=== PATIENT | male | born 1955 | race Caucasian/White ===

== ENCOUNTER 2021-10-13 09:02 | Outpatient (CLI) | payer MEDICARE, SELFPAY ==
--- NOTE | 2021-10-13 10:11 | XR_ITS ---
WS: [id number] XR chest 2V* [id number] REASON FOR EXAM: TACHYCARDIA, UNSPECIFIED FINDINGS: Mild tortuosity the thoracic aorta with calcification in the aortic arch. No aneurysmal dilatation. Cardiomegaly. Calcified granulomatous disease bilaterally. Interstitial reticular lung opacities in the right lower lung chronicity unknown without previous exa minations for comparison. Mild flattening of the hemidiaphragms. Moderate degenerative spondylosis with mild scoliosis convex right in the mid and lower thoracic spin e. XR/XR chest 2V* [id number] IMPRESSION: Cardiomegaly. Interstitial changes in the right lower lung of unknown chronicity. Most likely chronic, however cannot be excluded early pneumonitis or congestive heart fail ure. Follow-up chest x-ray as clinically warranted.
== END 2021-10-13 09:03 | disposition home or self-care (01) ==
LOC: RAD 09:10
PROVIDERS: PCP Nurse Practitioner; Visit Provider Nurse Practitioner
DX: I10 Essential (primary) hypertension (principal); R00.0 Tachycardia, unspecified; I51.7 Cardiomegaly; J84.10 Pulmonary fibrosis, unspecified; M47.814 Spondylosis without myelopathy or radiculopathy, thoracic region
CPT/HCPCS: 71046

== ENCOUNTER 2021-10-17 10:27 | Inpatient (IN) | payer MEDICARE, SELFPAY ==
[2021-10-17] VITALS (76 sets, daily range): BP systolic 88–137; BP diastolic 60–102; PULSE 90–124; RESP 14–36; TEMP 36.6–37.1; O2SAT 18–123; BMI 36.5
--- NOTE | 2021-10-17 10:41 | XRR_ITS ---
PROCEDURE INFORMATION: Exam: XR Chest Exam date and time: 10/17/2021 11:05 AM Age: 66 years old Clinical indication: Cough and dyspnea; Additional info: Dyspnea/cough TECHNIQUE: Imaging protocol: XR of the chest. Views: 1 view. Total images: 1 COMPARISON: CR XR chest 2V* [id number] 10/13/2021 10:11 AM FINDINGS: Lungs: Nonspecific opacity in the right lung base, favoring atelectasis or pneumonia. Appears similar to prior exam Impression. Pleural spaces: Unremarkable. No pleural effusion. No pneumothorax. Heart/Mediastinum: Heart size is stable when compared to the prior exam. Bones/joints: Osseous structures are unchanged from the prior exam. XR/XR chest 1V portable [id number] IMPRESSION: No acute findings.
--- NOTE | 2021-10-17 10:42 | ECG_ITS ---
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 Measurements Intervals [place] Rate: 110 P: DC: QRS: 66 QRSD: 110 T: 60 QT: 327 QTc: 443 Interpretive Statements ATRIAL FIBRILLATION WITH RAPID VENTRICULAR RESPONSE WITH ABERRANT CONDUCTION OR VENTRICULAR PREMATURE COMPLEXES NONSPECIFIC T-WAVE ABNORMALITY ABNORMAL RHYTHM ECG No previous ECG available for comparison Electronically Signed On 10-17-2021 17:37:07 CDT by Shu Lujan M.D. [email or web address] regional medical centerONI Medical Systems, Inc.[facility] hospitalIngenios Health/store/OM/[id number]/[id number]
[2021-10-17 11:03] LABS: Basophils # 0.1 10^3/uL (0.0-0.1); Basophils % 0.9 %; Eosinophils # 0.4 10^3/uL (0.0-0.8); Hematocrit 45.4 % (42.0-52.0); Lymphocytes # 3.9 10^3/uL (0.8-4.8); Lymphocytes % 38.5 %; Mean Corpuscular Hemoglobin 28.8 pg (28.0-34.0); Mean Corpuscular Volume 87.3 fl (80-94); Monocytes # 1.8 10^3/uL (0.2-0.9); Monocytes % 17.6 %; Neutrophils # 3.87 10^3/uL (1.8-7.7); Neutrophils % 38.8 %; Nucleated Red Blood Cells % 0 %; Red Cell Distribution Width 14.6 % (12.1-15.1)
[2021-10-17] MEDS: esmolol drip 2,500 MG/250 ML PREMIX 15.85 MG IV (11:12)
--- NOTE | 2021-10-17 11:13 | W.ED.ARRPALP ---
HPI - Arrhythmia/Palpitations General: Chief Complaint: Shortness of Breath/Dyspnea Stated Complaint: AFIB Time Seen by Provider: 10/17/21 10:38 Source: patient Mode of arrival: ambulatory Limitations: no limitations History of Present Illness: 66-year-old male presents emergency room complaining of rapid heart rate and shortness of breath. He relates it to an upper respiratory infection he says he has had this previously. He was seen 3 days ago and evidently was told he had atrial fibrillation and congestive heart failure. At rest he has no shortness of breath with any exertion he has significant shortness of breath which is new and unusual for him he denies any chest pain he has had rapid heart rate and palpitations however.I do not have any office notes from last week in our system. Patient denies being diabetic he does not smoke he has no known history of coronary artery disease and no confirmed previous diagnosis of atrial fibrillation. He does occasionally take aspirin but does not take it regularly and is not on any anticoagulants. MD complaint: rapid heart beat and atrial fibrillation Onset (ago): minute(s) Duration: constant Severity: moderate Context: occurred during exertion Associated symptoms: Reports short of breath; Deny anxiety, cough, diaphoresis, muscle cramps, nausea, paresthesias, pre-syncope, sense of impending doom, syncope or vomiting Review of Systems Const: Denies: fever(s), chills, body aches or diaphoresis ENMT: Denies: throat pain, ear or mastoid pain, nasal discharge or nasal congestion Card: Reports: palpitations and irregular heart rhythm; Denies: chest pain, syncope or pre-syncope Resp: Denies: dyspnea, productive cough or non-productive cough GI: Denies: nausea or vomiting : Denies: flank pain, difficulty urinating, dysuria, urinary frequency or urinary urgency Musc: Denies: muscle cramps Skin/Breast: Denies: rash or pruritus Psych: Denies: anxiety PFSH ED PFSH: Medical History (Updated 10/17/21 @ 14:55 by Pascual Fung DO) No pertinent past medical history Obstructive sleep apnea Surgical History No pertinent past surgical history Family History (Updated 10/17/21 @ 13:00 by Stefano Pond MD) Other Cancer Social History (Updated 10/17/21 @ 13:00 by Stefano Pond MD) Smoking and tobacco status: former smoker Alcohol intake: current Alcohol intake frequency: 0-2 Drinks per Day Substance/Drug Use: never Physical Exam Const: GENERAL APPEARANCE: cooperative and comfortable ORIENTATION/CONSCIOUSNESS: Yes awake, Yes oriented to person, Yes oriented to place and Yes oriented to time HENMT: COMMON NORMALS: normocephalic, atraumatic and hearing grossly normal bilaterally HEAD & SCALP: normocephalic and atraumatic Resp: COMMON NORMALS: normal respiratory effort, No retractions, No use of accessory muscles and clear to auscultation bilaterally AUSCULTATION: clear to auscultation bilaterally Cardio: RATE: tachycardic RHYTHM: abnormal rhythm irregularly irregular GI: COMMON NORMALS: Soft to palpation and No hepatosplenomegaly present AUSCULTATION: Yes normoactive bowel sounds PALPATION: Yes Soft to palpation, No Tenderness to palpation present (GI), No Guarding due to palpation present (GI) and Yes No hepatosplenomegaly present Extremity: COMMON NORMALS: normal to inspection, capillary refill normal, no clubbing, cyanosis or edema, no calf tenderness and no pedal edema Neuro: SENSORIUM/ORIENTATION: Yes oriented to person, Yes oriented to place and Yes oriented to time Skin: COMMON NORMALS: no rashes or lesions noted GENERAL SKIN EXAM: no rashes or lesions noted Course Vital Signs: Vital signs: Vital Signs Temperature 98.7 F 10/17/21 14:33 Pulse Rate 111 H 10/17/21 14:33 Respiratory Rate 16 10/17/21 14:33 Blood Pressure 112/84 10/17/21 14:33 Pulse Oximetry 95 10/17/21 14:33 MDM - Arrhythmia/Palpitations Medical Decision Making New onset atrial fibrillation rate relatively controlled now on esmolol drip. Additionally has thrombocytopenia which was noted last week on blood work we had reconfirmed that here as well. Discussed Dr. Pond orders written Medical Records I reviewed the patient's medical records. Lab Data I reviewed the patient's lab results. : 10/17/21 12:20 10/17/21 10:50 Radiology Impressions Chest X-Ray 10/17/21 10:41 IMPRESSION: No acute findings. Laboratory Results WBC 10.8 10^3/uL (4.0-10.0) H 10/17/21 12:20 RBC 5.32 10^6/uL (4.1-5.3) H 10/17/21 12:20 Hgb 15.2 g/dL (11.7-16.6) 10/17/21 12:20 Hct 46.6 % (42.0-52.0) 10/17/21 12:20 MCV 87.6 fl (80-94) 10/17/21 12:20 MCH 28.6 pg (28.0-34.0) 10/17/21 12:20 MCHC 32.6 g/dL (30.0-36.0) 10/17/21 12:20 RDW 14.6 % (12.1-15.1) 10/17/21 12:20 Plt Count 20 10^3/cmm (130-400) L* 10/17/21 12:20 MPV fL (7.4-10.4) 10/17/21 12:20 Neut % (Auto) 38.8 % 10/17/21 10:50 Lymph % (Auto) Not Reportable 10/17/21 12:20 [place] % (Auto) Not Reportable 10/17/21 12:20 Eos % (Auto) 4.0 % 10/17/21 10:50 Baso % (Auto) 0.9 % 10/17/21 10:50 Neut # (Auto) 3.87 10^3/uL (1.8-7.7) 10/17/21 10:50 Lymph # (Auto) Not Reportable 10/17/21 12:20 [place] # (Auto) Not Reportable 10/17/21 12:20 Eos # (Auto) 0.4 10^3/uL (0.0-0.8) 10/17/21 10:50 Baso # (Auto) 0.1 10^3/uL (0.0-0.1) 10/17/21 10:50 Nucleated RBC % (auto) 0 % 10/17/21 10:50 Total Counted 100 (0-100) 10/17/21 12:20 Atypical Lymphs % 7.0 % (0-5) H 10/17/21 12:20 Absolute Neutrophils 5.6 10^3/cmm (1.4-6.5) 10/17/21 12:20 Segmented Neutrophils 52 % 10/17/21 12:20 Abs Segm Neuts (Man) 5.6 10/cmm (1.6-7.1) 10/17/21 12:20 Band Neutrophils 0.0 % 10/17/21 12:20 Abs Band Neuts (Man) 0.0 10^3/cmm (0.0-1.2) 10/17/21 12:20 Absolute Lymphocytes 4.2 10^3/cmm (1.2-3.4) H 10/17/21 12:20 Lymphocytes (Manual) 32 % 10/17/21 12:20 Monocytes (Manual) 2.0 % 10/17/21 12: Absolute Monocytes 0.2 10^3/cmm (0.1-0.6) 10/17/21 12: Eosinophils (Manual) 7 % 10/17/21 12:20 Absolute Eosinophils 0.7 10^3/cmm (0.0-0.7) 10/17/21 12: Basophils (Manual) 0.0 % 10/17/21 12: Absolute Basophils 0.0 10^3/cmm (0.0-0.2) 10/17/21 12:20 Nucleated RBCs # 0.0 /100WBC 10/17/21 10:50 Platelet Estimate Decreased (Normal) 10/17/21 12:20 ESR 2 mm/hr (0-10) 10/17/21 10:50 Sodium 138 mmol/L (136-145) 10/17/21 10:50 Potassium 4.8 mmol/L (3.5-5.1) 10/17/21 10:50 Chloride 106 mmol/L (98-107) 10/17/21 10:50 Carbon Dioxide 20 mmol/L (22-29) L 10/17/21 10:50 Anion Gap 16.8 (5-19) 10/17/21 10:50 BUN 30 mg/dL (8-23) H 10/17/21 10:50 Creatinine 0.6 mg/dL (0.7-1.2) L 10/17/21 10:50 GFR Calculation 134.8 mL/min (90-130) H 10/17/21 10:50 Glucose 96 mg/dL (65-115) 10/17/21 10:50 Calculated Osmolality 292 mOsm/kg (285-295) 10/17/21 10:50 Calcium 8.3 mg/dL (8.5-10.5) L 10/17/21 10:50 Magnesium 2.0 mg/dL (1.7-2.3) 10/17/21 12:20 Total Bilirubin 1.2 mg/dL (0.15-1.2) 10/17/21 10:50 AST 39 U/L (0-40) 10/17/21 10:50 ALT 50 U/L (0-41) H 10/17/21 10:50 Alkaline Phosphatase 91 IU/L (40-130) 10/17/21 10:50 Lactate Dehydrogenase 305 U/L (135-225) H 10/17/21 12:20 Troponin T Baseline 30 ng/L (0-15) H 10/17/21 10:50 Troponin T 120 Minute 35.91 ng/L (0-15) H 10/17/21 12:20 Delta Troponin T 5.91 ABS# (0-10) 10/17/21 12:20 NT-Pro-B Natriuret Pep 2231 pg/mL (0-125) H 10/17/21 12:20 Total Protein 6.0 g/dL (6.6-8.7) L 10/17/21 10:50 Albumin 4.0 g/dL (3.5-5.2) 10/17/21 10:50 Globulin 2.0 g/dL (1.3-4.6) 10/17/21 10:50 TSH 2.80 uIU/mL (0.27-4.20) 10/17/21 10:50 Immunophenotype Interp Cancelled 10/17/21 10:50 Discharge Plan Discharge Patient Disposition: Admitted As Inpatient Admit Provider: Stefano Pond Clinical Impression: Atrial fibrillation, Thrombocytopenia Condition: Stable Coding Level of Care Code ED Administrative Library Assistant for Chg Fwd Exam Detailed
--- NOTE | 2021-10-17 11:24 | PC.NURSE ---
Esmolol gtt initiated (see MAR), tolorating, freq VS & cardiac monitoring.
[2021-10-17 11:27] LABS: Troponin(5th) Baseline 30 ng/L (0-15)
[2021-10-17 11:29] LABS: Slide Review Slide Review Perform
[2021-10-17 11:32] LABS: Platelet Count 21 10^3/cmm (130-400)
[2021-10-17 11:36] LABS: Alanine Aminotransferase 50 U/L (0-41); Alkaline Phosphatase 91 IU/L (40-130); Blood Urea Nitrogen 30 mg/dL (8-23); Calcium 8.3 mg/dL (8.5-10.5); Carbon Dioxide 20 mmol/L (22-29); Chloride 106 mmol/L (98-107); Glomerular Filtration Rate 134.8 mL/min (90-130); Glucose 96 mg/dL (65-115); Osmolality Calculated 292 mOsm/kg (285-295); Sodium 138 mmol/L (136-145); Total Bilirubin 1.2 mg/dL (0.15-1.2)
[2021-10-17 11:40] LABS: Anion Gap 16.8 (5-19); Aspartate Amino Transferase 39 U/L (0-40); Potassium 4.8 mmol/L (3.5-5.1)
--- NOTE | 2021-10-17 12:42 | ECG_ITS ---
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 Measurements Intervals [place] Rate: 102 P: OR: QRS: 67 QRSD: 97 T: 72 QT: 346 QTc: 452 Interpretive Statements ATRIAL FIBRILLATION WITH RAPID VENTRICULAR RESPONSE POSSIBLE ANTERIOR MYOCARDIAL INFARCTION , OF INDETERMINATE AGE [30 ms Q WAVE IN V3/V4, OR R < 0.2 mV IN V4] Compared to ECG 10/17/2021 10:50:06 Myocardial infarct finding now present Ventricular premature complex(es) no longer present Aberrant conduction of supraventricular beat(s) no longer present T-wave abnormality no longer present Electronically Signed On 10-17-2021 21:07:44 CDT by Shu Lujan M.D. [email or web address]/store/OM/[id number]
[2021-10-17 12:48] LABS: Hematocrit 46.6 % (42.0-52.0); Hemoglobin 15.2 g/dL (11.7-16.6); Mean Corpuscular HGB Conc 32.6 g/dL (30.0-36.0); Mean Corpuscular Hemoglobin 28.6 pg (28.0-34.0); Mean Corpuscular Volume 87.6 fl (80-94); Red Blood Count 5.32 10^6/uL (4.1-5.3); Red Cell Distribution Width 14.6 % (12.1-15.1); White Blood Count 10.8 10^3/uL (4.0-10.0)
--- NOTE | 2021-10-17 12:57 | P.HP_ITS ---
Providers/Chief Complaint Admitting Physician: Stefano Pond MD, hospitalist Primary Care Provider: Brenna Moore APN Chief Complaint: AFIB History of Present Illness Tate Malik is a 66 year old male who presents through the emergency department with complains of some dyspnea on exertion for quite some time. He believes it started in April. He will occasionally have some coughing up some clear sputum. Does not really feel palpitations. Does feel a little bit of chest tightness when he lays flat. Thought this was likely secondary to his sleep apnea. He is lost some weight recently, intentionally and thought his apnea symptoms would get better but they have not. He denies any fever. Reports no other recent illness. Denies any cardiac history, other than perhaps the enlarged heart in the past. Drank heavily in the past, but rarely drinks now. Denies any past history of atrial fibrillation, or thrombocytopenia. Was found to have atrial fibrillation with rapid ventricular rate, and thrombocytopenia at an outside clinic last week but refused admission at that time. Platelets at that time were 19,000, INR 1.2, BNP 1078. Review of Systems General: Reports: 10 or more systems reviewed and unremarkable except in HPI and below Const: Denies: fever(s) Eyes: Denies: change in vision ENMT: Denies: throat pain Card: Reports: dyspnea on exertion Resp: Reports: dyspnea and productive cough GI: Denies: abdominal pain, hematochezia or melena : Denies: flank pain Musc: Denies: neck pain Skin/Breast: Reports: rash (Petechiae on lower extremities) Neuro: Denies: headache(s) Psych: Denies: anxiety or depression Endo: Denies: polyuria Andrew/Lymph: Reports: petechiae All/Imm: Denies: urticaria Medications/Allergies Home Medications Medication Instructions Recorded Confirmed Last Taken Type Saline-Baking Soda Nasal Wash See Rx Instructions .ROUTE .COMPLEX 10/17/21 10/17/21 Unknown History astragalus root 470 mg capsule 470 mg PO DAILY 10/17/21 10/17/21 10/13/21 History cod liver oil 1 cap PO DAILY 10/17/21 10/17/21 10/13/21 History ibuprofen 200 mg tablet 400 mg PO BEDTIME 10/17/21 10/17/21 Unknown History sertraline 50 mg tablet 50 mg PO DAILY 10/17/21 10/17/21 Unknown History vitamin E 400 unit capsule 800 unit PO DAILY 10/17/21 10/17/21 10/13/21 History Allergies Allergy/AdvReac Type Severity Reaction Status Date / Time No Known Allergies Allergy Verified 10/17/21 11:22 PFSH Acute PFSH: Medical History (Updated 10/17/21 @ 13:15 by Stefano Pond MD) No pertinent past medical history Obstructive sleep apnea Surgical History No pertinent past surgical history Family History (Updated 10/17/21 @ 13:00 by Stefano Pond MD) Other Cancer Social History (Updated 10/17/21 @ 13:00 by Stefano Pond MD) Smoking and tobacco status: former smoker Alcohol intake: current Alcohol intake frequency: 0-2 Drinks per Day Substance/Drug Use: never Vitals/I&O/Wt Last Vital Signs Pulse 105 H 10/17/21 12:39 Resp 18 10/17/21 12:39 BP 113/84 10/17/21 12:39 Pulse Ox 94 10/17/21 12:39 10/16/21 10/17/21 10/17/21 22:59 06:59 14:59 Intake Total 5.283 / 5.283 Balance 5.283 / 5.283 Weight last 48 hrs Weight 105.687 kg Physical Exam Narrative: General exam is a white male, no distress HEENT: Pupils equally round. Oropharynx clear. Neck is supple no lymphadenopathy thyromegaly Cardiovascular tachycardic, irregular without murmur Lungs diminished breath sounds at the bases. A few faint expiratory wheezes left lower lung. No crackles. Abdomen is soft nontender positive bowel sounds. No obvious organomegaly exam is deferred Extremities no cyanosis clubbing or edema, cap refill brisk Skin no rash Neuro no obvious focal deficits. Data : 10/17/21 10:50 10/17/21 10:50 Other Labs: Chest x-ray no infiltrate. LFTs normal with exception of ALT of 50. Alk phos, AST, bilirubin normal. Calcium 8.3. Troponin 30 with repeat of 35 TSH 2.8 EKG demonstrates atrial fibrillation with rapid ventricular rate, normal axis, no acute changes A&P Assessment and plan (1) Atrial fibrillation: Currently with atrial fibrillation with rapid ventricular rate. TSH has been checked and normal. Check magnesium level, echocardiogram Continue esmolol drip started in the emergency department. Add metoprolol 25 mg twice daily. Add diltiazem 30 mg every 6 hours. I believe he has some acute diastolic heart failure, likely attributed to his atrial fibrillation with rapid ventricular rate. With control of rate this will likely improve. If it does not consider some diuresis. Further arrangements and plans after echocardiogram has returned. Not candidate for anticoagulation secondary to severe thrombocytopenia. Status: Acute (2) Thrombocytopenia: Significant thrombocytopenia noted. Petechiae noted on ankles. At this point will avoid antiplatelets, anticoagulants No evidence of infection per history, physical exam. Discussed briefly with hematology. Will need close follow-up and likely bone marrow. For now flow cytometry. Check sedimentation rate, LDH Status: Acute Plan Other medical problems as listed in past medical history Full code Pepcid for GI prophylaxis Attestations Medical Necessity Statement*: Will need greater than 2 midnight stay for evaluation and treatment of atrial fibrillation with rapid ventricular rate, with adjustment of medications for this as well as severe thrombocytopenia. Coding Level of Care Code Acute Power And Recovery Supervisor for [facility] Cilf Diagnoses Atrial fibrillation I48.91 Thrombocytopenia D69.6
[2021-10-17 13:03] LABS: Troponin 5 2HR 35.91 ng/L (0-15)
[2021-10-17 13:10] LABS: Troponin 5 2HR Delta 5.91 ABS# (0-10)
--- NOTE | 2021-10-17 13:13 | USCV_ITS ---
Tate Malik Age: 66 Gender: M : 1955 Exam Date: 10/17/2021 15:16 Ordering Phys: Stefano Pond MD Technologist: HANNA [place] [facility] [place]: ATRIAL FIBILATION BP: 130 / 102 HR: 107 Rhythm: Atrial fibrillation Technical Quality: Adequate MEASUREMENTS (Male / Female) Normal Values 2D ECHO LV Diastolic Diameter PLAX 5.3 cm 4.2 - 5.9 / 3.9 - 5.3 cm LV Systolic Diameter PLAX 4.3 cm IVS Diastolic Thickness 1.4 cm 0.6 - 1.0 / 0.6 - 0.9 cm IVS Systolic Thickness 1.4 cm LVPW Diastolic Thickness 1.1 cm 0.6 - 1.0 / 0.6 - 0.9 cm LVPW Systolic Thickness 1.4 cm LVOT Diameter 2.0 cm LV Ejection Fraction 2D Teich 39.9 % LV Ejection Fraction MOD 2C 46.2 % LV Ejection Fraction 2C AL 48.1 % LA Diameter 4.1 cm LA Width 4.2 cm LA Height 5.3 cm RA Width 4.2 cm RA Height 4.8 cm Aorta at Sinotubular Diameter 2.1 cm IVC Diameter 1.7 cm M-MODE Aortic Annulus Diameter 3.2 cm LA Ao Ratio MM 1.1 MV E Point Septal Separation 1.5 cm DOPPLER AV Peak Velocity 132.0 cm/s LVOT Peak Velocity 71.0 cm/s AV Area Cont Eq vti 1.6 cm squared AV Area Cont Eq pk 1.7 cm squared MV Peak Velocity 119.0 cm/s MV Area PHT 5.0 cm squared MV E' Velocity 46.0 cm/s Mitral E to MV E' Ratio 14.4 Mitral E to LV E' Lateral Ratio 12.7 Mitral E to LV E' Septal Ratio 16.7 TR Peak Velocity 177.7 cm/s TR Peak Gradient 12.6 mmHg TR Mean Velocity 138.2 cm/s TR Mean Gradient 8.8 mmHg TR Velocity Time Integral 45.5 cm TV Peak E Velocity 50.0 cm/s Right Atrial Pressure 3.0 mmHg Pulmonary Artery Systolic Pressu 15.6 mmHg PV Peak Velocity 63.0 cm/s RV Acceleration Time 0.1 s RV Ejection Time 0.3 s RV AcT/ET 0.3 FINDINGS Left Ventricle Normal left ventricular size. LV systolic function is severely reduced with EF of 30-35%. Severe global hypokinesis is seen. Diastolic function cannot be assessed because of atrial fibrillation. Right Ventricle Right ventricle is mildly hypokinetic Right Atrium The right atrium is normal in size. Left Atrium The left atrium is normal in size. Mitral Valve Structurally normal mitral valve without significant stenosis or prolapse. There is mild mitral regurgitation. Aortic Valve Structurally normal aortic valve without significant sclerosis or stenosis. There is mild to moderate aortic regurgitation. Tricuspid Valve Structurally normal tricuspid valve without significant stenosis. Mild tricuspid regurgitation. Insufficient TR jet to calculate RVSP Pulmonic Valve Not well-visualized Pericardium Normal pericardium without effusion. Aorta Normal ascending aorta dimension. IVC CONCLUSIONS LV systolic function is severely reduced with EF of 30 to 35%. Severe global hypokinesis is seen. Diastolic function cannot be assessed because of atrial fibrillation. RV is mildly hypokinetic Mild mitral regurgitation. Mild to moderate aortic regurgitation. Mild tricuspid regurgitation. No comparison studies are available Maxi Carmen MD (Electronically Signed) Final Date: 17 Oct 2021 22:33 S
[2021-10-17 13:21] LABS: Erythrocyte Sedimentation Rate 2 mm/hr (0-10)
[2021-10-17 13:33] LABS: Lactate Dehydrogenase 305 U/L (135-225)
[2021-10-17 13:39] LABS: Platelet Count 20 10^3/cmm (130-400); Slide Review Slide Review Perform
[2021-10-17 13:40] LABS: Absolute Eosinophils 0.7 10^3/cmm (0.0-0.7); Absolute Segmented Neutrophil 5.6 10/cmm (1.6-7.1); Eosinophils 7 %; Lymphocytes 32 %; Monocytes Absolute 0.2 10^3/cmm (0.1-0.6); Segmented Neutrophils 52 %; Total Cells Counted 100 (0-100)
[2021-10-17 13:41] LABS: Absolute Neutrophil 5.6 10^3/cmm (1.4-6.5); Lymphocytes Absolute 4.2 10^3/cmm (1.2-3.4); Platelet Estimate Decreased (Normal)
[2021-10-17 13:42] LABS: NT Pro B Type Natriuretic Pept 2231 pg/mL (0-125)
[2021-10-17] MEDS: dilTIAZem 30 mg Tablet PO ×2 (14:24→20:58)
[2021-10-17] MEDS: esmolol drip 2,500 MG/250 ML PREMIX 31.71 MG IV (16:33)
--- NOTE | 2021-10-17 16:42 | ECG_ITS ---
[facility] Test Date: 2021-10-17 Pat Name: Tate Malik Department: Room: 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 Measurements Intervals [place] Rate: 97 P: ND: QRS: 4 QRSD: 107 T: 94 QT: 361 QTc: 460 Interpretive Statements ATRIAL FIBRILLATION NONSPECIFIC T-WAVE ABNORMALITY Compared to ECG 10/17/2021 13:02:22 T-wave abnormality now present Myocardial infarct finding no longer present Electronically Signed On 10-17-2021 21:07:26 CDT by Shu Lujan M.D. [id number]
[2021-10-17 17:36] LABS: Troponin 5 6HR 29.44 ng/L (0-15)
[2021-10-17 17:41] LABS: Troponin 5 6HR Delta -0.56 ng/L (0-12)
[2021-10-17] MEDS: famotidine 20 mg Tablet PO (18:15)
[2021-10-17] MEDS: ondansetron 2 mg/ML SDV 2 mL 4 MG IVP (19:59)
[2021-10-17] MEDS: acetaminophen 325 mg Tablet 650 MG PO (20:57)
[2021-10-17] MEDS: metoprolol tartrate 25 mg Tablet PO (20:58)
[2021-10-18] VITALS (32 sets, daily range): BP systolic 84–129; BP diastolic 57–83; PULSE 74–114; RESP 12–24; TEMP 36.6–36.8; O2SAT 90–95
[2021-10-18] MEDS: dilTIAZem 30 mg Tablet PO ×2 (01:15→08:19)
[2021-10-18 04:19] LABS: Basophils # 0.1 10^3/uL (0.0-0.1); Basophils % 0.9 %; Eosinophils # 0.5 10^3/uL (0.0-0.8); Eosinophils % 4.2 %; Hematocrit 46.6 % (42.0-52.0); Hemoglobin 14.8 g/dL (11.7-16.6); Lymphocytes # 5.2 10^3/uL (0.8-4.8); Lymphocytes % 41.8 %; Mean Corpuscular HGB Conc 31.8 g/dL (30.0-36.0); Mean Corpuscular Hemoglobin 28.5 pg (28.0-34.0); Mean Corpuscular Volume 89.8 fl (80-94); Monocytes % 23.7 %; Neutrophils # 3.67 10^3/uL (1.8-7.7); Neutrophils % 29.2 %; Nucleated Red Blood Cells % 0 %; Red Blood Count 5.19 10^6/uL (4.1-5.3); Red Cell Distribution Width 14.6 % (12.1-15.1); White Blood Count 12.5 10^3/uL (4.0-10.0)
[2021-10-18 04:38] LABS: Alanine Aminotransferase 42 U/L (0-41); Albumin Level 3.9 g/dL (3.5-5.2); Alkaline Phosphatase 86 IU/L (40-130); Anion Gap 13.6 (5-19); Aspartate Amino Transferase 31 U/L (0-40); Blood Urea Nitrogen 33 mg/dL (8-23); Calcium 9.2 mg/dL (8.5-10.5); Carbon Dioxide 24 mmol/L (22-29); Chloride 107 mmol/L (98-107); Globulin 2.2 g/dL (1.3-4.6); Glomerular Filtration Rate 74.8 mL/min (90-130); Glucose 96 mg/dL (65-115); Magnesium 2.1 mg/dL (1.7-2.3); Osmolality Calculated 297 mOsm/kg (285-295); Potassium 4.6 mmol/L (3.5-5.1); Sodium 140 mmol/L (136-145); Total Bilirubin 0.9 mg/dL (0.15-1.2); Total Protein 6.1 g/dL (6.6-8.7)
[2021-10-18 04:58] LABS: Slide Review Slide Review Perform
[2021-10-18 05:00] LABS: Platelet Count 22 10^3/cmm (130-400)
--- NOTE | 2021-10-18 07:00 | PC.NURSE ---
Bedside report completed with MISTY Haynes. Pt resting, in recliner, with his eyes closed at this time.
[2021-10-18] MEDS: metoprolol tartrate 25 mg Tablet PO ×3 (08:19→20:53)
[2021-10-18] MEDS: famotidine 20 mg Tablet PO ×2 (08:20→17:37)
[2021-10-18] MEDS: LORazepam 2 mg/mL INJ 1 mL 0.5 MG IVP (08:20)
--- NOTE | 2021-10-18 08:41 | PM.CONSULT ---
Providers/Reason For Consult Consulting Physician/Specialty*: Dr. Lujan, Cardiology Reason for Consult*: Newly diagnosed cardiomyopathy Attending Physician: Stefano Pond MD Primary Care Provider: [facility] APN History of Present Illness History of Present Illness Tate Malik is a 66 year old male with complains of some dyspnea on exertion that started in April last year.? He has not been any palpitations. He complains of feeling short of breath and little bit of chest tightness when he lays flat.? He has lost some weight recently and thought his sleep apnea symptoms would get better but they have not.? He denies any fever, cough chills or any URI-like symptoms. Denies any cardiac history. Drank heavily in the past, but rarely drinks now.? Denies any past history of atrial fibrillation, or thrombocytopenia. He went to [facility] and was found to have atrial fibrillation with rapid ventricular rate, and thrombocytopenia at an outside clinic last week. Platelets at that time were 19,000, INR 1.2, BNP 1078. On arrival he was in A. fib with RVR and was started on esmolol drip. His echocardiogram showed moderately reduced EF and systolic function of 30% with global hypokinesis. Mild MR and mild to moderate AI was noted as well. Patient feels better now. Review of Systems General: Reports: 10 or more systems reviewed and unremarkable except in HPI and below Const: Denies: fever(s) Eyes: Denies: change in vision ENMT: Denies: throat pain Card: Reports: dyspnea on exertion and orthopnea; Denies: chest pain, palpitations, edema, syncope or pre-syncope Resp: Reports: dyspnea and productive cough GI: Denies: abdominal pain, hematochezia or melena : Denies: flank pain or hematuria Musc: Denies: neck pain Skin/Breast: Reports: rash (Petechiae on lower extremities) Neuro: Denies: headache(s) Psych: Denies: anxiety or depression Endo: Denies: polyuria Andrew/Lymph: Reports: petechiae All/Imm: Denies: urticaria Medications/Allergies Home Medications Medication Instructions Recorded Confirmed Last Taken Type Saline-Baking Soda Nasal Wash See Rx Instructions .ROUTE .COMPLEX 10/17/21 10/17/21 Unknown History astragalus root 470 mg capsule 470 mg PO DAILY 10/17/21 10/17/21 10/13/21 History cod liver oil 1 cap PO DAILY 10/17/21 10/17/21 10/13/21 History ibuprofen 200 mg tablet 400 mg PO BEDTIME 10/17/21 10/17/21 Unknown History sertraline 50 mg tablet 50 mg PO DAILY 10/17/21 10/17/21 Unknown History vitamin E 400 unit capsule 800 unit PO DAILY 10/17/21 10/17/21 10/13/21 History Allergies Allergy/AdvReac Type Severity Reaction Status Date / Time No Known Allergies Allergy Verified 10/17/21 11:22 Current Medications Generic Name Dose Route Start Last Admin Trade Name Freq PRN Reason Stop Dose Admin Acetaminophen 650 mg 10/17/21 13:53 10/17/21 20:57 Acetaminophen 325 Mg Tablet PO 650 mg Q6H PRN Administration MILD PAIN Diltiazem HCl 30 mg 10/17/21 13:53 10/18/21 08:19 Diltiazem 30 Mg Tablet PO 30 mg Q6H BERNARDO Administration Famotidine 20 mg 10/17/21 18:00 10/18/21 08:20 Famotidine 20 Mg Tablet PO 20 mg BID BERNARDO Administration Metoprolol Tartrate 25 mg 10/17/21 21:00 10/18/21 08:19 Metoprolol Tartrate 25 Mg Tablet PO 25 mg BID@0900,2100 BERNARDO Administration Ondansetron HCl 4 mg 10/17/21 13:53 10/17/21 19:59 Ondansetron 2 Mg/Ml Sdv 2 Ml IVP 4 mg Q6H PRN Administration NAUSEA AND VOMITING PFSH Acute PFSH: Medical History (Updated 10/18/21 @ 17:15 by Shu Lujan MD) CHF (congestive heart failure), NYHA class III Obstructive sleep apnea Surgical History No pertinent past surgical history Family History Other Cancer Social History Smoking and tobacco status: former smoker Alcohol intake: current Alcohol intake frequency: 0-2 Drinks per Day Substance/Drug Use: never Vitals/I&O/Wt Last Vital Signs Temp 98.1 F 10/18/21 06:00 Pulse 78 10/18/21 07:49 Resp 21 H 10/18/21 04:00 BP 86/67 10/18/21 04:00 Pulse Ox 95 10/18/21 07:49 10/17/21 10/18/21 10/18/21 22:59 06:59 14:59 Intake Total 1107.784 / 1113.067 200 / 1313.067 Output Total 950 / 950 400 / 1350 Balance 157.784 / 163.067 -200 / -36.933 Weight last 48 hrs Weight 233 lb Weight 233 lb Physical Exam Narrative: GENERAL: Obese man sitting in chair in no acute distress HEENT: Extraocular movement intact. No pallor or icterus. NECK: central trachea, short thick neck. No carotid bruit. CARDIOVASCULAR SYSTEM: S1-S2 irregular of variable intensity. No murmur or gallops. RESPIRATORY SYSTEM: Chest clear to auscultation. No wheezes rhonchi or rubs heard. No use of accessory muscles. ABDOMEN: Soft, nontender and nondistended. Normal bowel sounds present. No hepatosplenomegaly appreciated. EXTREMITIES: No cyanosis or clubbing. Trace edema. No signs of chronic venous insufficiency. 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 No focal neurological deficits. SKIN: Normal turgor and temperature. PSYCH: Normal insight and judgment. Data : 10/18/21 03:46 10/18/21 03:46 A&P Assessment and plan (1) Cardiomyopathy: Recently diagnosed dilated cardiomyopathy with LVEF of 30 to 35%. -Possible etiologies being tachycardia induced cardiomyopathy vs multivessel coronary artery disease -Patient will need some kind of ischemic work-up. [facility] vc stress test f/b [facility] if needed. -Situation is complicated by his severe thrombocytopenia. -Patient currently does not have any chest discomfort. Troponin x3 is negative and EKG without significant ST-T wave changes. -I think its prudent to wait while he undergoes work-up for thrombocytopenia, bone marrow biopsy and follow-up with hematology. -In the meantime I will set him up for LifeVest. -I discussed this with patient and he is agreeable with the plan. Status: Acute (2) CHF (congestive heart failure), NYHA class III: Status: Acute Qualifiers: Congestive heart failure chronicity: acute Congestive heart failure type: combined Qualified Code(s): I50.41 - Acute combined systolic (congestive) and diastolic (congestive) heart failure (3) Atrial fibrillation: Currently on rate control strategy. -He is on metoprolol tartrate 25 twice daily we will increase it to 25 3 times daily and transition to metoprolol succinate prior to discharge. -Blood pressure soft. Use Cardizem as needed -May have to consider amiodarone/digoxin in spite of possible side effect of thrombocytopenia. -Not on anticoagulation d/t severe thrombocytopenia. Status: Acute (4) Thrombocytopenia: Status: Acute (5) Obstructive sleep apnea: Status: Acute Plan Thank you for allowing me to participate in patient's care. Please feel free to call with questions or concerns Consult Attestations Time Spent in Patient Care: 16 - 35 minutes Coding Level of Care Code Acute Inspector Barrel for Kelsey Menezes Diagnoses Atrial fibrillation I48.91 Thrombocytopenia D69.6 Obstructive sleep apnea G47.33 CHF (congestive heart failure), NYHA class III I50.41 Congestive heart failure chronicity: acute Congestive heart failure type: combined Cardiomyopathy I42.9
--- NOTE | 2021-10-18 09:05 | PC.CHAP ---
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 [] Patient/Family/Request visit [] Outpatient visit [] Follow-up visit [] Physician referral [] Code/Alert [x] Routine visit [] Staff referral [] Actively dying [x] Patient sleeping [] Family support [] [] Out of room [] Palliative care [] [] Receiving care in room [] Pre-surgical visit [] Trauma [] Long length of stay [x] ICU visit [] Other: Relational/Emotional Strength [] Patient feels connected with others/family/visitors/staff [] Distress [] Loneliness/isolation [] Abandonment Spirituality of Patient [] Person of Mercedes [] Attends Congregation of their Mercedes [] Believes in Prayer [] Reads Bible or Anabaptist materials [] There are Spiritual issues to be addressed Writer Technical Publications Interventions [x] Prayer [] Active listening [] Non-anxious presence [] Spiritual/emotional support [] Crisis/trauma care [] Spiritual counseling [] Bereavement support [] Provided bereavement packet [] Provided Bible/devotional materials [] Provided toy/stuffed animal, coloring book to patient or family member [] Provided Communion [] Anointing/[place] [] Salvation [x] Completed spiritual assessment [] Other: Impact on Illness or Injury [] Angry [] Fearful [] Anxious [] Often cries [] Exhaustion [] Unable to work [] Unable to attend restorationist [] Unable to walk/stand [] Unable to read [] Unable to drive [] Unable to eat/drink [] Unable to sleep [] Unable to be with family [] Patient intubated [] Other: Summary Time spent with patient
--- NOTE | 2021-10-18 09:19 | PM.PN ---
Subjective Subjective: Tate reports he feels little bit better today. He is less short of breath. Reports no chest discomfort. Cough is improved. He reports he is having a significant difficulty time sleeping and would like something for that. Medications: Reviewed: Yes Vitals/I&O/Wt Last Vital Signs Temp 98.1 F 10/18/21 06:00 Pulse 78 10/18/21 07:49 Resp 21 H 10/18/21 04:00 BP 86/67 10/18/21 04:00 Pulse Ox 95 10/18/21 07:49 10/17/21 10/18/21 10/18/21 22:59 06:59 14:59 Intake Total 1107.784 / 1113.067 200 / 1313.067 Output Total 950 / 950 400 / 1350 Balance 157.784 / 163.067 -200 / -36.933 Weight last 48 hrs Weight 105.687 kg Weight 105.687 kg Physical Exam Narrative: General exam is a white male, no distress Neck is supple no lymphadenopathy thyromegaly Cardiovascular irregular, irregular without murmur. Telemetry shows improved heart rate control on current medications. Lungs diminished breath sounds at the bases. Today there is no wheezing. No crackles. Abdomen is soft nontender positive bowel sounds. No obvious organomegaly Extremities no cyanosis clubbing or edema, cap refill brisk Skin no rash Data : 10/18/21 03:46 10/18/21 03:46 A&P Assessment and plan (1) Atrial fibrillation: Heart rate is coming under better control with Cardizem as well as metoprolol. Esmolol drip has been discontinued. TSH has been checked and normal. Magnesium level was checked and normal Echocardiogram demonstrated decreased ejection fraction of 30 to 35% with global hypokinesis. Continue esmolol drip started in the emergency department. Add metoprolol 25 mg twice daily. Add diltiazem 30 mg every 6 hours. Presentation consistent with acute systolic heart failure, worsened by his longstanding atrial fibrillation with rapid ventricular rate. This is since much better compensated. He is not a candidate for anticoagulation secondary to severe thrombocytopenia with platelet count around 20,000. We will go ahead and obtained cardiology consultation at this time secondary to his new low ejection fraction. Consideration of nuclear stress testing. Status: Acute (2) Thrombocytopenia: Significant thrombocytopenia noted. Petechiae noted on ankles. At this point will avoid antiplatelets, anticoagulants No evidence of infection per history, physical exam. Discussed briefly with hematology. Will need close follow-up and likely bone marrow. For now flow cytometry which is ordered and pending Sedimentation rate normal. LDH slightly high. Status: Acute Plan Insomnia. Ativan x1. Other medical problems as listed in past medical history Full code Pepcid for GI prophylaxis Attestations Medical Necessity Statement*: Needs continued hospitalization for investigation of low ejection fraction, atrial fibrillation in the face of a comorbidity of platelet count of 20,000. 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
--- NOTE | 2021-10-18 09:40 | PC.NURSE ---
Call light on, upon entering room noted patient on his knees by bed, top part of his body on bed. When questioned patient stated he did not fall, he chose this position to help relieve his back. Offered Acetaminophen, he declined. Offered to help his reposition in bed or chair he declined. He stated this was the only way to get the pressure of his back as it was broken.
--- NOTE | 2021-10-18 09:58 | PC.NURSE ---
Pt back in recliner at bedside.
[2021-10-18 12:24] LABS: Leukemia Profile (BBPL) See Report; Lymphoma Profile (BBPL) See Report
--- NOTE | 2021-10-18 14:29 | PC.NURSE ---
[employer] rep. Heather Guillen, called, message left about life vest order.
--- NOTE | 2021-10-18 17:45 | PC.NURSE ---
Report faxed to [facility]
--- NOTE | 2021-10-18 17:53 | PC.NURSE ---
Shift summary: Pt has rested in chair in room most of the shift. He has also rested in bed and kneeling beside bed. He remains in A-fib, rate controlled 70-80's. Lungs remain clear. O2 says greater than 92% on room air. He is afebrile. Dr Lujan readjusted his cardiac medication today. Life vest order in EMR. [facility] contacted, awaiting Cardiology progress note to fax everything to [facility]. Pt denies pain this shift. He is very concerned about his insomnia, he now has Trazadone PRN available. Urine out put adequate. His called for updates, a couple times this shift. His A-fib, lab values, Lifevest order, Echo results/ EF , and mediations discussed. She verbalized understanding. She stated their one vehicle is in poor working order at the moment and she would rather he stay in the hospital to received all the testing he needs as opposed to multiple outpatient appts.
--- NOTE | 2021-10-18 18:30 | PC.NURSE ---
Report called to [facility] and given to MISTY Arguelles.
--- NOTE | 2021-10-18 18:52 | PC.NURSE ---
Pt transferred to [facility] room 102 via W/C. All belongings with pt. Pt oriented to room and call light. Further update given to MISTY Arguelles.
--- NOTE | 2021-10-18 19:25 | PC.NURSE ---
Attempted to notify Dianna Malik of patient's transfer to room 102. called [phone] the home number listed on face sheet, recording stated number was not available.
[2021-10-18] MEDS: trazodone 100 mg Tablet PO (20:52)
[2021-10-19] VITALS (9 sets, daily range): BP systolic 88–159; BP diastolic 64–83; PULSE 76–98; RESP 12–29; TEMP 36.7; O2SAT 92–97; BMI 36.5
[2021-10-19 04:10] LABS: Hemoglobin 14.7 g/dL (11.7-16.6); Mean Corpuscular Hemoglobin 28.3 pg (28.0-34.0); Mean Corpuscular Volume 88.6 fl (80-94); Red Blood Count 5.19 10^6/uL (4.1-5.3); Red Cell Distribution Width 14.6 % (12.1-15.1)
[2021-10-19 04:33] LABS: Alanine Aminotransferase 36 U/L (0-41); Albumin Level 3.9 g/dL (3.5-5.2); Alkaline Phosphatase 79 IU/L (40-130); Anion Gap 16.3 (5-19); Aspartate Amino Transferase 25 U/L (0-40); Blood Urea Nitrogen 28 mg/dL (8-23); Calcium 8.3 mg/dL (8.5-10.5); Carbon Dioxide 21 mmol/L (22-29); Chloride 108 mmol/L (98-107); Globulin 1.6 g/dL (1.3-4.6); Glomerular Filtration Rate 112.8 mL/min (90-130); Glucose 86 mg/dL (65-115); Osmolality Calculated 297 mOsm/kg (285-295); Potassium 4.3 mmol/L (3.5-5.1); Sodium 141 mmol/L (136-145); Total Bilirubin 0.7 mg/dL (0.15-1.2); Total Protein 5.5 g/dL (6.6-8.7)
[2021-10-19 05:19] LABS: Platelet Count 19 10^3/cmm (130-400)
[2021-10-19 06:03] LABS: Absolute Eosinophils 1.3 10^3/cmm (0.0-0.7); Absolute Neutrophil 4.1 10^3/cmm (1.4-6.5); Absolute Segmented Neutrophil 3.7 10/cmm (1.6-7.1); Band Neutrophils Absolute 0.4 10^3/cmm (0.0-1.2); Eosinophils 11 %; Lymphocytes 40 %; Lymphocytes Absolute 5.9 10^3/cmm (1.2-3.4); Monocytes Absolute 0.7 10^3/cmm (0.1-0.6); Platelet Estimate Decreased (Normal); Segmented Neutrophils 31 %; Smudge Cells 1+; Total Cells Counted 100 (0-100)
[2021-10-19] MEDS: metoprolol tartrate 25 mg Tablet PO ×2 (08:33→15:47)
[2021-10-19] MEDS: famotidine 20 mg Tablet PO (08:33)
--- NOTE | 2021-10-19 10:13 | PC.CHAP ---
Pastoral Care Encounter/Spiritual Assessment Type of Contact [] Declined receiving specialist visit [] Patient/Family/Request visit [] Outpatient visit [] Follow-up visit [] Physician referral [] Code/Alert [x] Routine visit [] Staff referral [] Actively dying [x] Patient sleeping [] Family support [] [] Out of room [] Palliative care [] [] Receiving care in room [] Pre-surgical visit [] Trauma [] Long length of stay [] ICU visit [] Other: Relational/Emotional Strength [] Patient feels connected with others/family/visitors/staff [] Distress [] Loneliness/isolation [] Abandonment Spirituality of Patient [] Person of Mercedes [] Attends Hinduism of their Mercedes [] Believes in Prayer [] Reads Bible or Buddhist materials [] There are Spiritual issues to be addressed Maintenance Shop Clerk Interventions [x] Prayer [] Active listening [] Non-anxious presence [] Spiritual/emotional support [] Crisis/trauma care [] Spiritual counseling [] Bereavement support [] Provided bereavement packet [] Provided Bible/devotional materials [] Provided toy/stuffed animal, coloring book to patient or family member [] Provided Communion [] Anointing/[place] [] Salvation [x] Completed spiritual assessment [] Other: Impact on Illness or Injury [] Angry [] Fearful [] Anxious [] Often cries [] Exhaustion [] Unable to work [] Unable to attend episcopalian [] Unable to walk/stand [] Unable to read [] Unable to drive [] Unable to eat/drink [] Unable to sleep [] Unable to be with family [] Patient intubated [] Other: Summary Time spent with patient
--- NOTE | 2021-10-19 12:12 | PM.PN ---
Subjective Subjective: Feels well. HR fairly controlled. remains in A. fib. Medications: Reviewed: Yes Vitals/I&O/Wt Last Vital Signs Temp 98.0 F 10/19/21 05:36 Pulse 93 10/19/21 10:00 Resp 20 H 10/19/21 10:00 BP 96/83 10/19/21 10:00 Pulse Ox 97 10/19/21 10:00 10/18/21 10/19/21 10/19/21 22:59 06:59 14:59 Intake Total 0 / 800 Output Total 500 / 1300 600 / 1900 Balance -500 / -500 -600 / -1100 Weight last 48 hrs Weight 233 lb Weight 233 lb Physical Exam Narrative: GENERAL: Obese man sitting in chair in no acute distress HEENT: Extraocular movement intact. No pallor or icterus. NECK: central trachea, short thick neck. No carotid bruit. CARDIOVASCULAR SYSTEM: S1-S2 irregular of variable intensity. No murmur or gallops. RESPIRATORY SYSTEM: Chest clear to auscultation. No wheezes rhonchi or rubs heard. No use of accessory muscles. ABDOMEN: Soft, nontender and nondistended. Normal bowel sounds present. No hepatosplenomegaly appreciated. EXTREMITIES: No cyanosis or clubbing. Trace edema. No signs of chronic venous insufficiency. 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 No focal neurological deficits. SKIN: Normal turgor and temperature. PSYCH: Normal insight and judgment. Data : 10/19/21 03:30 10/19/21 03:30 A&P Assessment and plan (1) Cardiomyopathy: Recently diagnosed dilated cardiomyopathy with LVEF of 30 to 35%. -Patient will need some kind of ischemic work-up. [facility] vc stress test f/b [facility] if needed. -Situation is complicated by his severe thrombocytopenia. -Patient currently does not have any chest discomfort. Troponin x3 is negative and EKG without significant ST-T wave changes. -I think its prudent to wait while he undergoes work-up for thrombocytopenia, bone marrow biopsy and follow-up with hematology. -In the meantime I will set him up for LifeVest. -I discussed this with patient and he is agreeable with the plan. -continue metoprolol tartrate 25 TID for now and add aldactone 12.5 mg PRN for leg swelling -Once life vest is fitted, stable to be discharged. -ACEI/ARB could not be added yet d/t soft BP -f/u in 2-3 weeks with me in [facility] Status: Acute (2) CHF (congestive heart failure), NYHA class III: Status: Acute Qualifiers: Congestive heart failure chronicity: acute Congestive heart failure type: combined Qualified Code(s): I50.41 - Acute combined systolic (congestive) and diastolic (congestive) heart failure (3) Atrial fibrillation: Currently on rate control strategy. -He is on metoprolol tartrate 25 twice daily we will increase it to 25 3 times daily. -Blood pressure soft. Has not needed Cardizem as needed -May have to consider amiodarone -Not on anticoagulation d/t severe thrombocytopenia. Status: Acute (4) Thrombocytopenia: F/u with hematology as planned Status: Acute (5) Obstructive sleep apnea: Status: Acute Plan Thank you for allowing me to participate in patient's care. 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
--- NOTE | 2021-10-19 14:14 | PC.NURSE ---
pt back from gi lab. pt c/o chest pain, dr lockhart at bedside and gi cocktail ordered.
--- NOTE | 2021-10-19 15:13 | PM.DCS ---
Discharge Providers Date of Admission: 10/17/21 13:53 Date of Discharge: October 19, 2021 Attending Provider at Admission: Stefano Pond MD Attending Provider at Discharge: Stefano Pond MD Primary Care Provider: Brenna Moore APN Diagnoses at Discharge Discharge Diagnosis (1) Cardiomyopathy: Status: Acute (2) CHF (congestive heart failure), NYHA class III: Status: Acute Qualifiers: Congestive heart failure type: combined Congestive heart failure chronicity: acute Qualified Code(s): I50.41 - Acute combined systolic (congestive) and diastolic (congestive) heart failure (3) Atrial fibrillation: Status: Acute (4) Thrombocytopenia: Status: Acute (5) Obstructive sleep apnea: Status: Acute Reason for Visit Reason for Visit: AFIB Hospital Course Hospital Course Tate is a 66-year-old white male who presented to the emergency department with dyspnea on exertion for quite some time. He had recently seen an outside primary care provider and found to be in atrial fibrillation with rapid ventricular rate, as well as marked thrombocytopenia. In the emergency department he was started on an esmolol drip. He was not anticoagulated secondary to his significant thrombocytopenia with a platelet count of 21,000 on admission. He was placed on metoprolol, as well as Cardizem and he was able to titrate off his esmolol drip. Eventually Cardizem was discontinued and metoprolol increased as blood pressures were somewhat soft. Echocardiogram was performed demonstrating an EF of 30 to 35%. Cardiology was consulted, who facilitated medicines during hospital stay and at discharge. They believe further work-up was needed, but would defer this until after low platelet count was addressed. I discussed his platelet count briefly with hematology. They believe the bone marrow was indicated after reviewing his peripheral smear. The patient will be arranged for close expeditious follow-up with hematology regarding this, in the next 2 days. This was discussed in detail with family. Other studies done while inpatient included a TSH. Sedimentation rate was not elevated, 2. There was no evidence of anemia, or leukopenia. Some atypical lymphs were seen. He had no fevers to indicate infection. Liver tests were not elevated by time of discharge. Although he appeared to have some heart failure on admission, this was well compensated at discharge. Instructions were given to avoid injury, bleeding, and to ensure appropriate follow-up. LifeVest will be fitted prior to discharge. Physical Exam Narrative: General exam no distress Neck is supple no lymphadenopathy or thyromegaly Cardiovascular irregular, irregular, rate controlled Lungs clear Abdomen is soft with positive bowel sounds Extremities no cyanosis clubbing or edema Discharge Data Studies Completed and Pending Completed Studies During Hospitalization Category Date Time Status XR chest 1V portable [id number] Stat Exams 10/17/21 10:41 Completed CV. echo complete* [id number] Routine Ultrasound 10/17/21 13:13 Completed Radiology Impressions Chest X-Ray 10/17/21 10:41 IMPRESSION: No acute findings. Laboratory Results WBC 12.0 10^3/uL (4.0-10.0) H 10/19/21 03:30 RBC 5.19 10^6/uL (4.1-5.3) 10/19/21 03:30 Hgb 14.7 g/dL (11.7-16.6) 10/19/21 03:30 Hct 46.0 % (42.0-52.0) 10/19/21 03:30 MCV 88.6 fl (80-94) 10/19/21 03:30 MCH 28.3 pg (28.0-34.0) 10/19/21 03:30 MCHC 32.0 g/dL (30.0-36.0) 10/19/21 03:30 RDW 14.6 % (12.1-15.1) 10/19/21 03:30 Plt Count 19 10^3/cmm (130-400) L* 10/19/21 03:30 MPV 13.0 fL (7.4-10.4) H 10/19/21 03:30 Neut % (Auto) 29.2 % 10/18/21 03:46 Lymph % (Auto) Not Reportable 10/19/21 03:30 Brantley % (Auto) Not Reportable 10/19/21 03:30 Eos % (Auto) 4.2 % 10/18/21 03:46 Baso % (Auto) 0.9 % 10/18/21 03:46 Neut # (Auto) 3.67 10^3/uL (1.8-7.7) 10/18/21 03:46 Lymph # (Auto) Not Reportable 10/19/21 03:30 Brantley # (Auto) Not Reportable 10/19/21 03:30 Eos # (Auto) 0.5 10^3/uL (0.0-0.8) 10/18/21 03:46 Baso # (Auto) 0.1 10^3/uL (0.0-0.1) 10/18/21 03:46 Nucleated RBC % (auto) 0 % 10/18/21 03:46 Total Counted 100 (0-100) 10/19/21 03:30 Atypical Lymphs % 9.0 % (0-5) H 10/19/21 03:30 Absolute Neutrophils 4.1 10^3/cmm (1.4-6.5) 10/19/21 03:30 Segmented Neutrophils 31 % 10/19/21 03:30 Abs Segm Neuts (Man) 3.7 10/cmm (1.6-7.1) 10/19/21 03:30 Band Neutrophils 3.0 % 10/19/21 03:30 Abs Band Neuts (Man) 0.4 10^3/cmm (0.0-1.2) 10/19/21 03:30 Absolute Lymphocytes 5.9 10^3/cmm (1.2-3.4) H 10/19/21 03:30 Lymphocytes (Manual) 40 % 10/19/21 03:30 Monocytes (Manual) 6.0 % 10/19/21 03:30 Absolute Monocytes 0.7 10^3/cmm (0.1-0.6) H 10/19/21 03:30 Eosinophils (Manual) 11 % 10/19/21 03:30 Absolute Eosinophils 1.3 10^3/cmm (0.0-0.7) H 10/19/21 03:30 Basophils (Manual) Not Reportable 10/19/21 03:30 Absolute Basophils 0.0 10^3/cmm (0.0-0.2) 10/17/21 12:20 Nucleated RBCs # 0.0 /100WBC 10/18/21 03:46 Smudge Cells 1+ H 10/19/21 03:30 Platelet Estimate Decreased (Normal) 10/19/21 03:30 ESR 2 mm/hr (0-10) 10/17/21 10:50 Sodium 141 mmol/L (136-145) 10/19/21 03:30 Potassium 4.3 mmol/L (3.5-5.1) 10/19/21 03:30 Chloride 108 mmol/L (98-107) H 10/19/21 03:30 Carbon Dioxide 21 mmol/L (22-29) L 10/19/21 03:30 Anion Gap 16.3 (5-19) 10/19/21 03:30 BUN 28 mg/dL (8-23) H 10/19/21 03:30 Creatinine 0.7 mg/dL (0.7-1.2) 10/19/21 03:30 GFR Calculation 112.8 mL/min (90-130) 10/19/21 03:30 Glucose 86 mg/dL (65-115) 10/19/21 03:30 Calculated Osmolality 297 mOsm/kg (285-295) H 10/19/21 03:30 Calcium 8.3 mg/dL (8.5-10.5) L 10/19/21 03:30 Magnesium 2.1 mg/dL (1.7-2.3) 10/18/21 03:46 Total Bilirubin 0.7 mg/dL (0.15-1.2) 10/19/21 03:30 AST 25 U/L (0-40) 10/19/21 03:30 ALT 36 U/L (0-41) 10/19/21 03:30 Alkaline Phosphatase 79 IU/L (40-130) 10/19/21 03:30 Lactate Dehydrogenase 305 U/L (135-225) H 10/17/21 12:20 Troponin T Baseline 30 ng/L (0-15) H 10/17/21 10:50 Troponin T 120 Minute 35.91 ng/L (0-15) H 10/17/21 12:20 Delta Troponin T 5.91 ABS# (0-10) 10/17/21 12:20 Troponin T Hi Sens 6Hr 29.44 ng/L (0-15) H 10/17/21 17:05 Troponin T Hi Sens 6Hr Delta -0.56 ng/L (0-12) L 10/17/21 17:05 NT-Pro-B Natriuret Pep 2231 pg/mL (0-125) H 10/17/21 12:20 Total Protein 5.5 g/dL (6.6-8.7) L 10/19/21 03:30 Albumin 3.9 g/dL (3.5-5.2) 10/19/21 03:30 Globulin 1.6 g/dL (1.3-4.6) 10/19/21 03:30 TSH 2.80 uIU/mL (0.27-4.20) 10/17/21 10:50 Lymphoma Panel See report 10/17/21 10:50 Immunophenotype Interp Cancelled 10/17/21 10:50 Immunophenotype Interp See report 10/17/21 10:50 Vitals Last Vital Signs Temp 98.0 F 10/19/21 05:36 Pulse 78 10/19/21 14:00 Resp 16 10/19/21 14:00 BP 159/79 10/19/21 14:00 Pulse Ox 96 10/19/21 14:00 Discharge Plan Discharge Patient Disposition: Home Condition: Stable Prescriptions: New famotidine 20 mg Tablet 20 mg PO BID Qty: 60 0RF metoprolol tartrate 25 mg Tablet 25 mg PO TID Qty: 90 0RF spironolactone [Aldactone] 25 mg tablet 12.5 mg PO DAILY PRN (Reason: edema) Qty: 15 0RF Continued Saline-Baking Soda Nasal Wash See Rx Instructions .ROUTE .COMPLEX 0RF Rx Instructions: as directed prn Discontinued cod liver oil Capsule 1 cap PO DAILY 0RF ibuprofen 200 mg Tablet 400 mg PO BEDTIME 0RF sertraline 50 mg tablet 50 mg PO DAILY 0RF Rx Instructions: rx filled 10/12/21 (not started) vitamin E 400 unit Capsule 800 unit PO DAILY 0RF Astragalus 470 mg Capsule 470 mg PO DAILY 0RF Discharge Orders: Discharge Order (Routine); Ordered 10/19/21 Ordered By: Stefano Pond Referrals: Brenna Moore APN [Primary Care Provider] - 4-7 days (Please follow-up with Brenna Moore on October 25 at 1:30P.M. If you have any questions or need to reschedule. Please call ) Adriano Sow MD [Hospitalist] - 1-3 days (Follow-up on Sunday for clinic visit. CBC on follow-up) Shu Lujan MD [Physician] - 2 weeks (Please follow-up Jen Davidson on November 02 at 12:45P.M. If you have any questions or need to rschedule. Please call ) Discharge Diet: Regular and Cardiac Discharge Activity: Increase activity as tolerated and Limit activity as instructed Patient Instructions: A-fib (Atrial Fibrillation) (DC), Thrombocytopenia (DC), CHF Stoplight, Opioid Safety, Obstructive Sleep Apnea Activity Restrictions/Additional Instructions: Avoid any falls. Avoid any risk-taking behavior where bruising and/or bleeding could occur. Take all medicine as prescribed Follow-up with oncology this week Return for any concerns, chest discomfort, bleeding, fever. Discharge Attestations Time Spent in Discharge Care*: greater than 30 min Quality Metrics Clinical Quality Measures [ No reported AMI, CVA or VTE this stay] Coding Level of Care Code Acute Chg FW DC note Diagnoses Cardiomyopathy I42.9 CHF (congestive heart failure), NYHA class III I50.41 Congestive heart failure type: combined Congestive heart failure chronicity: acute Atrial fibrillation I48.91 Thrombocytopenia D69.6 Obstructive sleep apnea G47.33
--- NOTE | 2021-10-19 17:56 | PC.NURSE ---
life vest delivered and placed on patient. education given by lizzy rn. new medications and followup information discussed with pt and spouse. verbalized understanding and no further questions. meds delivered to bedside prior to discharge. pt left via [facility] to private vehicle. all belongings sent with patient. discharge papers signed.
== END 2021-10-19 17:45 | disposition home or self-care (01) | DRG 308 ==
LOC: ER 11:17 → ICU 13:28 → CSU 10-18 18:41
PROVIDERS: Admitting Provider Internal Medicine; Emergency Provider Family Medicine; PCP Nurse Practitioner; Visit Provider Internal Medicine
DX: I48.91 Unspecified atrial fibrillation (principal); I50.41 Acute combined systolic (congestive) and diastolic (congestive) heart failure; G47.33 Obstructive sleep apnea (adult) (pediatric); Z87.891 Personal history of nicotine dependence; D69.6 Thrombocytopenia, unspecified; I08.0 Rheumatic disorders of both mitral and aortic valves; I42.0 Dilated cardiomyopathy; G47.00 Insomnia, unspecified
CPT/HCPCS: 36415; 71045; 80053; 83615; 83735; 83880; 84443; 84484; 85007; 85025; 85651; 88184; 88185; 93005; 93306; 96365; 96366; 96375; 99285; J2060; J2405; J3490

== ENCOUNTER 2021-10-24 08:30 | Oncology outpatient (recurring) (ONCR) | payer MEDICARE, SELFPAY ==
[2021-10-24 10:37] VITALS: BP 107/81; PULSE 44; RESP 18; TEMP 36.4; O2SAT 98
[2021-10-24 10:55] VITALS: BP 110/82; PULSE 78; RESP 20; TEMP 35.9; O2SAT 98
[2021-10-24 11:33] VITALS: BP 110/82; PULSE 98; RESP 18; TEMP 35.9; O2SAT 99
== END 2021-11-01 23:59 | disposition home or self-care (01) ==
PROVIDERS: PCP Nurse Practitioner; Visit Provider Internal Medicine Medical Oncology
DX: D69.6 Thrombocytopenia, unspecified (principal); D72.820 Lymphocytosis (symptomatic); G47.30 Sleep apnea, unspecified; I48.91 Unspecified atrial fibrillation; I50.9 Heart failure, unspecified; K21.9 Gastro-esophageal reflux disease without esophagitis; G47.33 Obstructive sleep apnea (adult) (pediatric); Z87.891 Personal history of nicotine dependence
CPT/HCPCS: 36415; 36430; 38222; 85025; 86850; 86900; 88184; 88185; 88305; 88311; 99204; 99214; J2704; J7030; P9035

== ENCOUNTER 2021-10-24 11:02 | Day surgery (SDC) | payer MEDICARE, SELFPAY ==
[2021-10-24 11:28] VITALS: BP 118/89; PULSE 75; RESP 18; TEMP 35.9; O2SAT 99
[2021-10-24 11:32] VITALS: BMI 36.8
[2021-10-24] MEDS: sodium chloride 0.9% 1,000 ML 30 ML IV ×2 (11:56→13:34)
[2021-10-24 12:08] LABS: Basophils # 0.1 10^3/uL (0.0-0.1); Basophils % 0.7 %; Eosinophils # 0.6 10^3/uL (0.0-0.8); Eosinophils % 4.8 %; Hematocrit 47.6 % (42.0-52.0); Hemoglobin 15.7 g/dL (11.7-16.6); Lymphocytes # 5.4 10^3/uL (0.8-4.8); Lymphocytes % 42.1 %; Mean Corpuscular Hemoglobin 28.4 pg (28.0-34.0); Mean Corpuscular Volume 86.1 fl (80-94); Monocytes # 1.2 10^3/uL (0.2-0.9); Monocytes % 9.5 %; Neutrophils # 5.49 10^3/uL (1.8-7.7); Neutrophils % 42.5 %; Nucleated Red Blood Cells % 0 %; Platelet Count 39 10^3/cmm (130-400); Red Blood Count 5.53 10^6/uL (4.1-5.3); Red Cell Distribution Width 14.5 % (12.1-15.1); White Blood Count 12.9 10^3/uL (4.0-10.0)
--- NOTE | 2021-10-24 12:32 | ANES.PREANE2 ---
Pre-Anesthetic Assessment Height/Weight: Height 1.7 m Weight 106.594 kg Temp Pulse Resp BP Pulse Ox 96.7 F L 75 18 118/89 99 10/24/21 11:28 10/24/21 11:28 10/24/21 11:28 10/24/21 11:28 10/24/21 11:28 Preop Diagnosis: Bone marrow biopsy Operation Date: 10/24/21 12:30 Proposed Procedures p Bone Marrow Biospy With Aspiration(Not Applicable) - Charissa Goode MD Familial anesthetic complications: None Was Beta Selin taken within 24 hours: Yes Was Clonidine taken within 24 hours: N/A Last intake: Intake Last Liquid Date 10/23/21 Last Liquid Time 18:00 Last Solid Date 10/23/21 Last Solid Time 18:00 Social No alcohol and No tobacco Exam alert, oriented x 3 and clear to auscultation bilaterally Irregular rate, regular rhythm , no murmur Airway Submandibular: within normal limits Cervical ROM: within normal limits Mallampati: Class II Dentition: chipped (Chipped front teeth ) Pulmonary Sleep Apnea CV/HEM Atrial Fibrillation and Congestive Heart Failure Thrombocytopenia None reported Hepatic None reported GI Gastroesophageal Reflux Disease (Well controlled ) Metabolic None reported Musc/skel None reported Neuropsych None reported Anesthetic Plan ASA status: 3 (66 year old male with CONCHIS, recent dx of afib and CHF w/ thrombocytopenia of unknown cause ) Anesthesia: Anesthesia Evaluation and MAC Other: I discussed with the patient risks, goals, and benefits of MAC and general anesthesia. We discussed spectrum of MAC anesthesia including conversion to general as well as possibility of recall of intraoperative stimuli including discomfort/pain. Patient agrees to proceed with MAC. Risk of > 500 ml blood loss (7ml/kg in children): No Medications/Allergies Home Medications Medication Instructions Recorded Confirmed Last Taken Type Saline-Baking Soda Nasal Wash See Rx Instructions .ROUTE .COMPLEX 10/17/21 10/24/21 10/23/21 History metoprolol tartrate 25 mg tablet 25 mg PO TID #90 tab 10/19/21 10/24/21 10/24/21 08:00 Rx spironolactone 25 mg tablet 12.5 mg PO DAILY PRN #15 tab 10/19/21 10/24/21 10/23/21 Rx (Aldactone) famotidine 20 mg tablet 20 mg PO DAILY tab 05/10/24/21 10/23/21 History trazodone 50 mg tablet 50 mg PO BEDTIME #30 tab 10/21/21 10/24/21 10/23/21 Rx Allergies Allergy/AdvReac Type Severity Reaction Status Date / Time No Known Allergies Allergy Verified 10/21/21 10:06 Current Medications Generic Name Dose Route Start Last Admin Trade Name Jerry PRN Reason Stop Dose Admin Sodium Chloride 1,000 mls @ 30 mls/hr 10/24/21 11:30 10/24/21 11:56 Sodium Chloride 0.9% IV 10/25/21 11:29 30 mls/hr .Q24H BERNARDO Administration PFSH Anesthesia Medical History Atrial fibrillation Cardiomyopathy CHF (congestive heart failure), NYHA class III Obstructive sleep apnea Surgical History No pertinent past surgical history Family History Other Cancer Family history unknown Social History Smoking and tobacco status: former smoker Alcohol intake: former Data Anesthesia : 10/24/21 11:55 Short CBC 10/24/21 Range/Units 11:55 WBC 12.9 H (4.0-10.0) 10^3/uL Hgb 15.7 (11.7-16.6) g/dL Hct 47.6 (42.0-52.0) % MCV 86.1 (80-94) fl Plt Count 39 L (130-400) 10^3/cmm Neut % (Auto) 42.5 % Neut # (Auto) 5.49 (1.8-7.7) 10^3/uL Cardiac Studies: Echocardiogram 10/17/21
--- NOTE | 2021-10-24 13:07 | W.PM.OPSUD ---
Surgery/Procedure H&P Update DATE OF PROCEDURE: October 24, 2021 DATE H&P PERFORMED: 10/24/21 PREOP DIAGNOSIS: Bone marrow biopsy PLANNED PROCEDURE: Operation Date: 10/24/21 12:30 Proposed Procedures p Bone Marrow Biospy With Aspiration(Not Applicable) - Charissa Goode MD
--- NOTE | 2021-10-24 13:08 | W.PM.OPSUD ---
Surgery/Procedure H&P Update DATE OF PROCEDURE: October 24, 2021 DATE H&P PERFORMED: 10/24/21 PREOP DIAGNOSIS: Bone marrow biopsy PRIMARY INDICATION FOR PROCEDURE: Patient seen and examined, no new changes or complaints PLANNED PROCEDURE: Operation Date: 10/24/21 12:30 Proposed Procedures p Bone Marrow Biospy With Aspiration(Not Applicable) - Charissa Goode MD
--- NOTE | 2021-10-24 13:40 | P.PCN_ITS ---
Bone Marrow Biopsy Bone Marrow Biopsy: I was consulted by [] office regarding bone marrow biopsy on [Tate Malik. Briefly, the patient is a [66] year old Male] with [Thrombocytopenia and lymphocytosis ]. In the Outpatient Services Department, with nursing staff and laboratory technologists in attendance, the procedure was discussed with the patient. Appropriate consent form had been signed. Appropriate alternatives, benefits and risks of procedure were discussed with the patient and he was pre- operatively assessed with a history and physical by myself and cleared for the biopsy procedure. The patient did request IV sedation and that was provided by the Anesthesia Department. Under aseptic condition right posterior iliac area was cleaned and prepped, local anesthesia was given, about 15 cc of bone marrow aspirate and core biopsy was obtained, patient tolerated procedure well, hemostasis obtained, specimen was sent for routine histopathology, flow cytometry, cytogenetics and lymphoma/leukemia panel. Postprocedure nursing instructions were given Thank you for allowing me to participate in this patient's care and diagnosis. Coding Level of Care Code Acute Product Applications Scientist for Chg Fwd History Problem Focused Exam Problem Focused Medical Decision Making Straight Forward
[2021-10-24 13:42] VITALS: BP 111/90; PULSE 86; RESP 15; TEMP 36.3; O2SAT 95
--- NOTE | 2021-10-24 13:47 | ANE.PACU2 ---
Documented by User: Jenny Steinberg CRNA 10/24/21 13:47 Inpatient post-anesthesia follow up: Airway intact: Yes Vital signs: Temperature 96.7 F Pulse Rate 75 Respiratory Rate 18 Blood Pressure 118/89 Pulse Oximetry 99 Oxygen Delivery Me thod Room Air Oxygen Flow Rate Fraction of Inspir ed Oxygen Hydration adequate: Yes Nausea and vomiting: No Pain level: 1 Mental status: Baseline
[2021-10-24 14:00] VITALS: BP 97/79; PULSE 107; RESP 16; O2SAT 91
[2021-10-24 14:08] VITALS: BP 115/96; PULSE 95; RESP 16; O2SAT 98
[2021-10-26 08:35] LABS: Leukemia Profile (BBPL) See Report; Lymphoma Profile (BBPL) See Report
[2021-11-04 09:23] LABS: Miscellaneous Test See Scanned Lab Rpt
== END 2021-10-24 14:20 | disposition home or self-care (01) ==
PROVIDERS: PCP Nurse Practitioner Family; Visit Provider Internal Medicine Hematology & Oncology
PROC: 07DT3ZX Extraction of Bone Marrow, Percutaneous Approach, Diagnostic (ICD-10-PCS; CPT 38222; principal; 2021-10-24 12:30)
DX: D69.6 Thrombocytopenia, unspecified (principal); D72.820 Lymphocytosis (symptomatic); G47.30 Sleep apnea, unspecified; I48.91 Unspecified atrial fibrillation; I50.9 Heart failure, unspecified; K21.9 Gastro-esophageal reflux disease without esophagitis; G47.33 Obstructive sleep apnea (adult) (pediatric); Z87.891 Personal history of nicotine dependence
CPT/HCPCS: 36415; 38222; 85025; 88184; 88185; 88305; 88311; J2704; J7030

== ENCOUNTER → 2021-11-03 09:46 | Outpatient (BNVA) | payer MEDICARE, SELFPAY | PROVIDERS: PCP Nurse Practitioner Family; Visit Provider Nurse Practitioner Family | DX: I48.91 Unspecified atrial fibrillation (principal); I50.41 Acute combined systolic (congestive) and diastolic (congestive) heart failure; Z87.891 Personal history of nicotine dependence | CPT/HCPCS: 99214 ==

== ENCOUNTER 2021-11-30 08:21 | Oncology outpatient (recurring) (ONCR) | payer MEDICARE, SELFPAY ==
[2021-11-30 11:01] LABS: Alanine Aminotransferase 127 U/L (0-41); Albumin Level 4.2 g/dL (3.5-5.2); Alkaline Phosphatase 71 IU/L (40-130); Aspartate Amino Transferase 40 U/L (0-40); Blood Urea Nitrogen 27 mg/dL (8-23); Carbon Dioxide 27 mmol/L (22-29); Chloride 107 mmol/L (98-107); Globulin 2.1 g/dL (1.3-4.6); Glomerular Filtration Rate 112.8 mL/min (90-130); Glucose 122 mg/dL (65-115); NT Pro B Type Natriuretic Pept 1511 pg/mL (0-125); Osmolality Calculated 302 mOsm/kg (285-295); Sodium 143 mmol/L (136-145); Total Bilirubin 0.4 mg/dL (0.15-1.2); Total Protein 6.3 g/dL (6.6-8.7)
[2021-11-30 11:02] LABS: Anion Gap 13.7 (5-19)
[2021-11-30 11:03] LABS: Potassium 4.7 mmol/L (3.5-5.1)
[2021-11-30 11:08] LABS: LAB Peripheral Smear Sent for Review
[2021-11-30 11:19] LABS: Hepatitis A Antibody IgM Non-Reactive (Nonreactive); Hepatitis B Core AB, Total Non-Reactive (Nonreactive); Hepatitis B Surface AB 9.4 (11.5-1000); Hepatitis B Surface Antigen Non-Reactive (Nonreactive); Hepatitis C Virus Antibody Non-Reactive (Nonreactive)
[2021-11-30 11:38] LABS: Hematocrit 46.7 % (42.0-52.0); Hemoglobin 15.4 g/dL (11.7-16.6); Mean Corpuscular Hemoglobin 27.9 pg (28.0-34.0); Mean Corpuscular Volume 84.6 fl (80-94); Red Blood Count 5.52 10^6/uL (4.1-5.3); Red Cell Distribution Width 14.9 % (12.1-15.1); White Blood Count 15.6 10^3/uL (4.0-10.0)
[2021-11-30 11:45] LABS: Slide Review Slide Review Perform
[2021-11-30 11:46] LABS: Platelet Count 10 10^3/cmm (130-400); Total Cells Counted 100 (0-100)
[2021-11-30 11:47] LABS: Absolute Eosinophils 0.1 10^3/cmm (0.0-0.7); Absolute Neutrophil 7.2 10^3/cmm (1.4-6.5); Absolute Segmented Neutrophil 7.2 10/cmm (1.6-7.1); Eosinophils 1 %; Lymphocytes 5 %; Lymphocytes Absolute 6.7 10^3/cmm (1.2-3.4); Monocytes Absolute 1.6 10^3/cmm (0.1-0.6); Platelet Estimate Decreased (Normal); Segmented Neutrophils 46 %
[2021-12-01 13:48] LABS: Lyme AB Screen <0.90 index
[2021-12-02 13:26] LABS: Erythrocyte Sedimentation Rate 2 mm/hr (0-10)
[2021-12-06 17:27] LABS: RMSF IGG DETECTED; RMSF IGM NOT DETECTED
[2021-12-07 21:38] LABS: E. Chaffeensis AB IGG <1:64; E. Chaffeensis AB IGM <1:20
== END 2021-11-30 23:59 | disposition home or self-care (01) ==
PROVIDERS: PCP Nurse Practitioner Family; Visit Provider Internal Medicine Medical Oncology
DX: D69.3 Immune thrombocytopenic purpura (principal); Z79.52 Long term (current) use of systemic steroids; R58 Hemorrhage, not elsewhere classified; R74.01 Elevation of levels of liver transaminase levels; Z79.899 Other long term (current) drug therapy; C85.10 Unspecified B-cell lymphoma, unspecified site; I42.9 Cardiomyopathy, unspecified; I50.9 Heart failure, unspecified
CPT/HCPCS: 80053; 83880; 85007; 85025; 85651; 86140; 86618; 86666; 86705; 86706; 86709; 86757; 86803; 87340; 99214

== ENCOUNTER 2021-12-09 08:40 | Oncology outpatient (recurring) (ONCR) | payer MEDICARE, SELFPAY ==
[2021-12-09 09:51] LABS: Basophils # 0.1 10^3/uL (0.0-0.1); Basophils % 0.7 %; Eosinophils # 0.3 10^3/uL (0.0-0.8); Eosinophils % 1.3 %; Hematocrit 49.3 % (42.0-52.0); Hemoglobin 16.3 g/dL (11.7-16.6); Lymphocytes # 7.4 10^3/uL (0.8-4.8); Mean Corpuscular HGB Conc 33.1 g/dL (30.0-36.0); Mean Corpuscular Hemoglobin 27.6 pg (28.0-34.0); Mean Corpuscular Volume 83.4 fl (80-94); Monocytes # 2.3 10^3/uL (0.2-0.9); Monocytes % 12.4 %; Neutrophils # 8.27 10^3/uL (1.8-7.7); Neutrophils % 44.6 %; Nucleated Red Blood Cells % 0 %; Red Blood Count 5.91 10^6/uL (4.1-5.3); Red Cell Distribution Width 15.5 % (12.1-15.1); White Blood Count 18.6 10^3/uL (4.0-10.0)
[2021-12-09 10:05] LABS: Alanine Aminotransferase 65 U/L (0-41); Albumin Level 4.3 g/dL (3.5-5.2); Alkaline Phosphatase 79 IU/L (40-130); Blood Urea Nitrogen 34 mg/dL (8-23); Calcium 9.1 mg/dL (8.5-10.5); Carbon Dioxide 24 mmol/L (22-29); Chloride 103 mmol/L (98-107); Globulin 2.4 g/dL (1.3-4.6); Glomerular Filtration Rate 96.7 mL/min (90-130); Glucose 106 mg/dL (65-115); Osmolality Calculated 294 mOsm/kg (285-295); Sodium 138 mmol/L (136-145); Total Bilirubin 0.4 mg/dL (0.15-1.2); Total Protein 6.7 g/dL (6.6-8.7)
[2021-12-09 10:07] LABS: Aspartate Amino Transferase 28 U/L (0-40)
[2021-12-09 10:22] LABS: Slide Review Slide Review Perform
[2021-12-09 10:24] LABS: Erythrocyte Sedimentation Rate < 1 mm/hr (0-10); Platelet Count 9 10^3/cmm (130-400)
== END 2021-12-09 23:59 | disposition home or self-care (01) ==
PROVIDERS: PCP Nurse Practitioner Family; Visit Provider Internal Medicine Medical Oncology
DX: D69.3 Immune thrombocytopenic purpura (principal); Z79.52 Long term (current) use of systemic steroids
CPT/HCPCS: 36415; 80053; 85025; 85651; 99214

== ENCOUNTER 2021-12-26 12:33 | Oncology outpatient (recurring) (ONCR) | payer MEDICARE, SELFPAY ==
--- NOTE | 2021-12-26 12:45 | CT_ITS ---
WS: [id number] CT CHEST, ABDOMEN, AND PELVIS TECHNIQUE: Contrast-enhanced CT of the chest, abdomen, and pelvis with coronal and sagittal reformatt ed images. CLINICAL INFORMATION: B CELL LYMPHOMA COMPARISON: None. DLP: 1984.[address] scans at [facility] use at least one of these dose optimization techniques: automated e xposure control; mA and/or kV adjustment per patient size (includes targeted exams where dose is matc hed to clinical indication); or iterative reconstruction. CT CHEST: Enlarged lower thoracic periaortic and periesophageal lymph nodes. Enlarged retrocrural lym ph nodes. Largest lymph nodes measure up to 17 mm. Normal caliber thoracic aorta. Aortic calcification. Proximal main pulmonary arteries are normal. Prashanth cified mediastinal and RIGHT hilar lymph nodes. Coronary calcification. No mediastinal or hilar lymph adenopathy. No axillary lymphadenopathy. Both lungs are well aerated. Slight bibasilar atelectasis. CT ABDOMEN AND PELVIS: Slightly prominent peripancreatic lymph node measuring 13 mm Diffuse fatty infiltration of the liver. Normal portal vein and splenic vein. Hazy enhancing lesion R IGHT hepatic lobe likely represents incidental vascular anomaly or hemangioma. This measures approxim ately 16 mm. Splenic granulomas. Normal GE junction. Normal parenchymal and pancreatic parenchymal en hancement. Splenic granulomas. Normal portal vein and splenic vein. Adrenal glands are normal. Normal renal parenchymal enhancement no hydronephrosis. Sigmoid diverticul osis. No evidence of acute diverticulitis. Tiny fat-containing umbilical hernia. Fat-containing LEFT inguinal hernia. No pelvic or inguinal lymphadenopathy. Diffuse bladder wall thickening with enhancement. Correlation for cystitis. Slight anterolisthesis L5 on S1 with bilateral spondylolysis. Disc space narrowing worse L5-S1 with vacuum disc phenomenon. Sl ight retrolisthesis L3 on L4. CT/CT chest abd pel w con* IMPRESSION: 1. Enlarged paraesophageal and periaortic lymph nodes in the lower chest and r etrocrural in the upper abdomen. Largest lymph node measures 17 mm. 2. Slightly prominent lymph node peripancreatic upper abdomen measuring 13 mm. 3. Otherwise no periaortic, inguinal, or pelvic lymphadenopathy. 4. Diffuse fatty infiltration of the liver. 5. Vague enhancing lesion in the RIGHT hepatic lobe likely benign vascular ano brain or cavernous hemangioma. 6. Bladder wall thickening with enhancement.Correlation for cystitis. 7. Slight anterolisthesis L5 on S1 with bilateral spondylolysis.
[2021-12-26] MEDS: iohexol 350 mg/mL 100 mL Btl IV (14:41)
[2021-12-26] MEDS: barium sulfate 450 mL Oral Susp PO (14:41)
== END 2022-01-01 23:59 | disposition home or self-care (01) ==
LOC: ONCMED 12:36 → RAD 12:46 → ONCMED 12-28 15:57
PROVIDERS: PCP Nurse Practitioner Family; Visit Provider Internal Medicine Medical Oncology
DX: C85.10 Unspecified B-cell lymphoma, unspecified site (principal)
CPT/HCPCS: 71260; 74177

== ENCOUNTER 2022-01-16 10:44 | Oncology outpatient (recurring) (ONCR) | payer MEDICARE, SELFPAY | END 2022-02-01 23:59 | disposition home or self-care (01) | PROVIDERS: PCP Nurse Practitioner Family; Visit Provider Internal Medicine Medical Oncology | DX: D69.3 Immune thrombocytopenic purpura (principal); Z79.52 Long term (current) use of systemic steroids; Z79.899 Other long term (current) drug therapy | CPT/HCPCS: 99215 ==

== ENCOUNTER → 2022-01-17 14:47 | Outpatient (BNVA) | payer MEDICARE, SELFPAY | PROVIDERS: PCP Nurse Practitioner Family; Visit Provider Internal Medicine Cardiovascular Disease | DX: I48.91 Unspecified atrial fibrillation (principal); C85.10 Unspecified B-cell lymphoma, unspecified site; G47.33 Obstructive sleep apnea (adult) (pediatric); D69.3 Immune thrombocytopenic purpura; Z87.891 Personal history of nicotine dependence | CPT/HCPCS: 99214 ==

== ENCOUNTER → 2022-02-14 12:47 | Outpatient (BNVA) | payer MEDICARE, SELFPAY | PROVIDERS: PCP Nurse Practitioner Family; Visit Provider Nurse Practitioner Family | DX: I48.91 Unspecified atrial fibrillation (principal) | CPT/HCPCS: 36415; 80048; 93005; 99213; 99214 ==

== ENCOUNTER 2022-02-21 07:51 | Oncology outpatient (recurring) (ONCR) | payer MEDICARE, SELFPAY ==
[2022-02-21 08:38] VITALS: BMI 41.1
[2022-02-21 08:44] LABS: Hematocrit 49.3 % (42.0-52.0); Hemoglobin 16.1 g/dL (11.7-16.6); Mean Corpuscular HGB Conc 32.7 g/dL (30.0-36.0); Mean Corpuscular Hemoglobin 27.8 pg (28.0-34.0); Mean Corpuscular Volume 85.1 fl (80-94); Red Blood Count 5.79 10^6/uL (4.1-5.3); Red Cell Distribution Width 15.8 % (12.1-15.1); White Blood Count 14.5 10^3/uL (4.0-10.0)
[2022-02-21 09:12] LABS: Alkaline Phosphatase 69 U/L (40-130); Blood Urea Nitrogen 32 mg/dL (8-23); Calcium 9.3 mg/dL (8.5-10.5); Carbon Dioxide 22 mmol/L (22-29); Chloride 102 mmol/L (98-107); Globulin 2.7 g/dL (1.3-4.6); Glomerular Filtration Rate 84.4 mL/min (90-130); Glucose 125 mg/dL (65-115); Osmolality Calculated 292 mOsm/kg (285-295); Sodium 137 mmol/L (136-145); Total Bilirubin 0.3 mg/dL (0.15-1.2); Total Protein 6.7 g/dL (6.6-8.7)
[2022-02-21 09:13] LABS: Alanine Aminotransferase 31 U/L (0-41); Anion Gap 17.9 (5-19); Aspartate Amino Transferase 31 U/L (0-40); Potassium 4.9 mmol/L (3.5-5.1)
[2022-02-21 09:26] LABS: Slide Review Slide Review Perform
[2022-02-21 09:27] LABS: Absolute Eosinophils 0.4 10^3/cmm (0.0-0.7); Absolute Neutrophil 5.9 10^3/cmm (1.4-6.5); Absolute Segmented Neutrophil 5.8 10/cmm (1.6-7.1); Band Neutrophils Absolute 0.1 10^3/cmm (0.0-1.2); Eosinophils 3 %; Lymphocytes 36 %; Lymphocytes Absolute 7.1 10^3/cmm (1.2-3.4); Platelet Estimate Decreased (Normal); Segmented Neutrophils 40 %; Total Cells Counted 100 (0-100)
[2022-02-21 09:28] LABS: Platelet Count 11 10^3/cmm (130-400)
== END 2022-03-03 23:59 | disposition home or self-care (01) ==
PROVIDERS: Nurse Practitioner; PCP Nurse Practitioner Family; Visit Provider Internal Medicine Medical Oncology
DX: C85.10 Unspecified B-cell lymphoma, unspecified site; D69.6 Thrombocytopenia, unspecified; Z87.891 Personal history of nicotine dependence
CPT/HCPCS: 36415; 80053; 85007; 85025; 99214

== ENCOUNTER 2023-04-23 02:55 | Emergency (ER) | payer MEDICARE, SELFPAY ==
[2023-04-23] VITALS (154 sets, daily range): BP systolic 79–158; BP diastolic 40–123; PULSE 82–172; RESP 6–30; TEMP 36.4–37.1; O2SAT 74–100; BMI 35.9
--- NOTE | 2023-04-23 03:09 | ECG_ITS ---
[facility] Test Date: 2023-04-23 Pat Name: Tate Malik Department: Room: Gender: Male [employer] Rep: : 1955 Requested By: Mukesh Peña Order Number: [id number] Domingo MD: Kandace Camara M.D. Measurements Intervals [place] Rate: 126 P: 0 IA: 0 QRS: 4 QRSD: 87 T: 59 QT: 285 QTc: 413 Interpretive Statements ATRIAL FIBRILLATION WITH RAPID VENTRICULAR RESPONSE NONSPECIFIC ST & T-WAVE ABNORMALITY ABNORMAL RHYTHM ECG Compared to ECG 10/17/2021 17:28:44 No significant changes Electronically Signed On 04-23-2023 14:47:06 MEDICAL LAB TECH INSTRUCTOR by Kandace Camara M.D. [id number]
--- NOTE | 2023-04-23 03:14 | XRR_ITS ---
PROCEDURE INFORMATION: Exam: XR Chest Exam date and time: 04/23/2023 3:17 AM Age: 67 years old Clinical indication: Patient HX: Tachycardic on monitor. History of afib rvr, chf, and lymphoma. ; Additional info: Afib with rvr TECHNIQUE: Imaging protocol: Radiologic exam of the chest. Views: 1 view. COMPARISON: CT chest abdpel w/*[id number] 12/26/2021 2:39 PM FINDINGS: Lungs: No consolidation. Pleural spaces: No large pleural effusion. No pneumothorax. Heart/Mediastinum: Cardiomegaly. Mild rightward deviation of the lower trachea, appears slightly more conspicuous on this exam compared to prior, indeterminate. Bones/joints: No acute abnormality. XR/XR chest 1V portable [id number] IMPRESSION: 1. Mild rightward deviation of the lower trachea, appears slightly more conspicuous on this exam compared to prior, indeterminate, may be related to differences in patient positioning. Otherwise, no acute findings. 2. Cardiomegaly.
[2023-04-23 03:40] LABS: Basophils # 0.1 10^3/uL (0.0-0.1); Basophils % 0.5 %; Eosinophils # 0.3 10^3/uL (0.0-0.8); Eosinophils % 1.1 %; Hematocrit 36.2 % (37-53); Lymphocytes % 42.1 %; Mean Corpuscular HGB Conc 27.6 g/dL (30-55); Mean Corpuscular Hemoglobin 22.2 pg (27-33); Mean Corpuscular Volume 80.3 fl (82-101); Monocytes # 6.6 10^3/uL (0.2-0.9); Monocytes % 27.8 %; Neutrophils # 6.62 10^3/uL (1.8-7.7); Nucleated Red Blood Cells % 0 %; Red Blood Count 4.51 10^6/uL (3.85-5.65); Red Cell Distribution Width 19.8 % (12.1-15.1); White Blood Count 23.71 10^3/uL (3.29-11.43)
[2023-04-23 03:52] LABS: INR 0.99 (0.8-1.2)
[2023-04-23 03:58] LABS: Troponin(5th) Baseline 36 ng/L (0-15)
[2023-04-23 03:59] LABS: Lactic Sepsis W/Reflex 1.8 mmol/L (0.5-2.2)
--- NOTE | 2023-04-23 04:04 | CTR_ITS ---
PROCEDURE INFORMATION: Exam: CT Abdomen And Pelvis Without Contrast Exam date and time: 04/23/2023 4:16 AM Age: 67 years old Clinical indication: Patient HX: Gross hematuria. History of lymphoma. Wilcox in place. ; Additional info: Hematuria, flank pain, abdominal pain TECHNIQUE: Imaging protocol: Computed tomography of the abdomen and pelvis without contrast. Radiation optimization: All CT scans at this facility use at least one of these dose optimization techniques: automated exposure control; mA and/or kV adjustment per patient size (includes targeted exams where dose is matched to clinical indication); or iterative reconstruction. REPORTING DATA: Count of CT and Cardiac NM exams in prior 12 months: This patient has received 0 known CTs and 0 known cardiac nuclear medicine studies in the 12 months prior to the current study. COMPARISON: CT chest abdpel w/*[id number] 12/26/2021 2:39 PM RADIATION DOSE METRICS: Total DLP (mGy-cm): 1096.07 FINDINGS: Tubes, catheters and devices: Wilcox catheter with balloon inflated in the bladder. Lungs: Clear. Liver: Scattered hepatic granulomas. Otherwise unremarkable unenhanced appearance. Gallbladder and bile ducts: No calcified stones. Unremarkable unenhanced appearance. Pancreas: Unremarkable unenhanced appearance. Spleen: Scattered splenic granulomas. Otherwise unremarkable. Adrenal glands: Unremarkable. Kidneys and ureters: No hydronephrosis. No renal or ureteral calculi. Stomach and bowel: No bowel obstruction. Appendix: No evidence of appendicitis. Intraperitoneal space: No free air. No significant fluid collection. Vasculature: Limited evaluation without IV contrast. No aneurysm. Lymph nodes: Scattered prominent iliac chain nodes, nonspecific, but appears similar to prior. Urinary bladder: Large heterogeneous hyperattenuating material within the urinary bladder as well as air. Diffuse perivesicular stranding. Reproductive: Unremarkable unenhanced appearance as visualized. Bones/joints: No acute fracture. No aggressive osseous lesions. Soft tissues: Small fat containing left inguinal hernias. Incidental small lipoma within the left gluteus medius. CT/CT kidney stone [id number] IMPRESSION: Large heterogeneous hyperattenuating material within the urinary bladder as well as air. Considerations include hematoma versus bladder mass. While the air is likely iatrogenic given Wilcox catheter, can also be seen with emphysematous cystitis. Perivesicular inflammation.
[2023-04-23 04:05] LABS: Alanine Aminotransferase 46 U/L (0-41); Albumin Level 4.4 g/dL (3.5-5.2); Alkaline Phosphatase 62 U/L (40-130); Anion Gap 14.3 (5-19); Aspartate Amino Transferase 19 U/L (0-40); Blood Urea Nitrogen 38 mg/dL (8-23); Calcium 9.4 mg/dL (8.5-10.5); Carbon Dioxide 28 mmol/L (22-29); Chloride 105 mmol/L (98-107); Globulin 1.9 g/dL (1.3-4.6); Glomerular Filtration Rate 84.2 mL/min (90-130); Glucose 119 mg/dL (65-115); NT Pro B Type Natriuretic Pept 1110 pg/mL (0-125); Osmolality Calculated 306 mOsm/kg (285-295); Potassium 4.3 mmol/L (3.5-5.1); Sodium 143 mmol/L (136-145); Total Bilirubin 0.3 mg/dL (0.15-1.2); Total Protein 6.3 g/dL (6.6-8.7)
[2023-04-23 04:23] LABS: Slide Review Slide Review Perform
[2023-04-23 04:25] LABS: Platelet Count 6 10^3/cmm (157-399)
--- NOTE | 2023-04-23 04:26 | PC.NURSE ---
Dr Tam notified of patient's critical lab value, platelet count. No new orders received at this time.
[2023-04-23 05:07] LABS: Add Urine Culture? Yes; Add Urine Microscopic? YES; Bilirubin Urine Neg (Negative); Blood Urine 3+ (Negative); Glucose Urine UA Norm (Normal); Ketones Urine 1+ (Negative); Leukocyte Esterase Urine Trace (Negative); Nitrate Urine Negative (Negative); Protein Urine 3+ (Negative); RBC Urine TOO NUMEROUS TO CNT /hpf (0-2); Specific Gravity, Urine 1.015 (1.005-1.030); Squamous Epithelial Cell Urine 0-4 /hpf (0-5); Urine Appearance Cloudy (CLEAR); Urine Color Red (Yellow); Urobilinogen Urine Neg (Negative); WBC Urine 25-40 /hpf (0-5); pH Urine 6.5 (5-7)
--- NOTE | 2023-04-23 05:07 | W.ED.MALEGU ---
HPI - Male Genitourinary General: Chief complaint: Urogenital-Male Stated complaint: blood in urine Time Seen by Provider: 04/23/23 03:05 History of Present Illness: 67-year-old male gentleman with a history of autoimmune thrombocytopenia. He presents with suprapubic pelvic and back discomfort with hematuria. He notes that he started passing blood with clots in his urine last night, and pain worsened at that point. He is having some trouble breathing. No fever. He notes that he has had small bouts of hematuria on and off, but not of this severity. Associated symptoms: Reports hematuria and nausea; Deny vomiting Review of Systems Const: Denies: fever(s) Card: Reports: palpitations and irregular heart rhythm; Denies: chest pain Resp: Reports: dyspnea; Denies: productive cough or non-productive cough GI: Reports: abdominal pain and nausea; Denies: vomiting or diarrhea : Reports: difficulty urinating, urinary frequency, urinary dribbling and hematuria PFSH ED PFSH: Medical History Atrial fibrillation Autoimmune thrombocytopenia B-cell lymphoma Cardiomyopathy CHF (congestive heart failure), NYHA class III Obstructive sleep apnea Surgical History No pertinent past surgical history Family History Other Cancer Family history unknown Unknown family medical history Social History Smoking and tobacco/nicotine status: former use of tobacco/nicotine Alcohol intake: former Substance/Drug Use: never Physical Exam Const: GENERAL APPEARANCE: cooperative and ill appearing (mildly); not frail appearing HENMT: COMMON NORMALS: normocephalic and Normal external nose present HEAD & SCALP: normocephalic FACE & SINUS: normal facial exam and face symmetric NOSE: Normal external nose present Eye: COMMON NORMALS: Equal, round and reactive pupils present and EOMs intact bilaterally PUPIL: Yes Equal, round and reactive pupils present Neck/C-Spine: GENERAL: Yes trachea midline Chest: CHEST: Yes Symmetrical chest wall rise Resp: COMMON NORMALS: normal respiratory effort, No retractions, No use of accessory muscles and clear to auscultation bilaterally AUSCULTATION: clear to auscultation bilaterally Cardio: COMMON NORMALS: regular rate RATE: regular rate and tachycardic RHYTHM: abnormal rhythm irregularly irregular GI: COMMON NORMALS: Normal to inspection, nondistended, normoactive bowel sounds present Extremity: COMMON NORMALS: no pedal edema Neuro: SRIDHAR COMA SCALE: document GCS findings Sridhar coma scale eye opening: Spontaneous Sridhar coma scale verbal response: Orientated Sridhar coma scale motor response: Obey commands [place] coma scale total score: 15 SENSORY EXAM: Yes extremities (intact) Psych: COMMON NORMALS: speech normal SPEECH: Yes normal speech Skin: COMMON NORMALS: no rashes or lesions noted GENERAL SKIN EXAM: no rashes or lesions noted Course Vital Signs: Vital signs: Vital Signs Temperature 97.8 F 04/23/23 03:01 Pulse Rate 110 H 04/23/23 06:36 Respiratory Rate 16 04/23/23 06:12 Blood Pressure 96/49 04/23/23 06:36 Pulse Oximetry 98 04/23/23 06:36 Oxygen Delivery Me thod Room Air 04/23/23 06:36 [facility] [place] - Male Medical Decision Making Wilcox catheter is placed on his arrival, but only a small amount of blood and clot were expelled in the bag. Wilcox was flushed, with good return, several clots in the bag, and urine output. He presented quite tachycardic in atrial fibrillation. He has a history of A-fib. He is not anticoagulated because of his history of thrombocytopenia. His blood pressure has been elevated mildly here. His heart rate now with relief of his obstruction is down to 100 or so. Saturations are normal. His white blood cell count is 24. Hemoglobin is 10. His platelet count is 6. He relates that he had a transfusion of platelets, his first, 2 weeks or so ago. Chest x-ray done because of atrial fibrillation shows no infiltrates and no acute changes. Abdominal CT shows heterogenous hyperattenuating material within the urinary bladder, likely hematoma. His lactic acid is only 1.8. His CRP is 3. Urinalysis is pending as yet.Urinalysis shows hematuria gross without evidence of infection. We do not have urology service here at this hospital. The patient's family is in [place] to get some of his care there. We will attempt to obtain him a bed in [facility]. We have ordered 2 units of platelets given the severe thrombocytopenia. Wilcox is still draining. Patient has been accepted at [facility]. Awaiting a bed. They agree with management. Lab Data 04/23/23 03:26 04/23/23 03:26 Radiology Impressions Chest X-Ray 04/23/23 03:14 IMPRESSION: 1. Mild rightward deviation of the lower trachea, appears slightly more conspicuous on this exam compared to prior, indeterminate, may be related to differences in patient positioning. Otherwise, no acute findings. 2. Cardiomegaly. Abdomen/Pelvis CT 04/23/23 04:04 IMPRESSION: Large heterogeneous hyperattenuating material within the urinary bladder as well as air. Considerations include hematoma versus bladder mass. While the air is likely iatrogenic given Wilcox catheter, can also be seen with emphysematous cystitis. Perivesicular inflammation. Laboratory Results WBC 23.71 10^3/uL (3.29-11.43) H 04/23/23 03:26 RBC 4.51 10^6/uL (3.85-5.65) 04/23/23 03:26 Hgb 10.00 g/dL (11.27-16.99) L 04/23/23 03:26 Hct 36.2 % (37-53) L 04/23/23 03:26 MCV 80.3 fl (82-101) L 04/23/23 03:26 MCH 22.2 pg (27-33) L 04/23/23 03:26 MCHC 27.6 g/dL (30-55) L 04/23/23 03:26 RDW 19.8 % (12.1-15.1) H 04/23/23 03:26 Plt Count 6 10^3/cmm (157-399) L* 04/23/23 03:26 MPV TNP 04/23/23 03:26 Neut % (Auto) 28.0 % 04/23/23 03:26 Lymph % (Auto) 42.1 % 04/23/23 03:26 [place] % (Auto) 27.8 % 04/23/23 03:26 Eos % (Auto) 1.1 % 04/23/23 03:26 Baso % (Auto) 0.5 % 04/23/23 03:26 Neut # (Auto) 6.62 10^3/uL (1.8-7.7) 04/23/23 03:26 Lymph # (Auto) 10.0 10^3/uL (0.8-4.8) H 04/23/23 03:26 [place] # (Auto) 6.6 10^3/uL (0.2-0.9) H 04/23/23 03:26 Eos # (Auto) 0.3 10^3/uL (0.0-0.8) 04/23/23 03:26 Baso # (Auto) 0.1 10^3/uL (0.0-0.1) 04/23/23 03:26 Nucleated RBC % (auto) 0 % 04/23/23 03:26 Nucleated RBCs # 0.0 /100WBC 04/23/23 03:26 PT 13.40 SECONDS (12.1-14.9) 04/23/23 03:26 INR 0.99 (0.8-1.2) 04/23/23 03:26 APTT 23.0 SECONDS (23.9-36.7) L 04/23/23 03:26 Sodium 143 mmol/L (136-145) 04/23/23 03:26 Potassium 4.3 mmol/L (3.5-5.1) 04/23/23 03:26 Chloride 105 mmol/L (98-107) 04/23/23 03:26 Carbon Dioxide 28 mmol/L (22-29) 04/23/23 03:26 Anion Gap 14.3 (5-19) 04/23/23 03:26 BUN 38 mg/dL (8-23) H 04/23/23 03:26 Creatinine 0.9 mg/dL (0.7-1.2) 04/23/23 03:26 GFR Calculation 84.2 mL/min (90-130) L 04/23/23 03:26 Glucose 119 mg/dL (65-115) H 04/23/23 03:26 Calculated Osmolality 306 mOsm/kg (285-295) H 04/23/23 03:26 Lactic Acid 1.8 mmol/L (0.5-2.2) 04/23/23 03:26 Calcium 9.4 mg/dL (8.5-10.5) 04/23/23 03:26 Total Bilirubin 0.3 mg/dL (0.15-1.2) 04/23/23 03:26 AST 19 U/L (0-40) 04/23/23 03:26 ALT 46 U/L (0-41) H 04/23/23 03:26 Alkaline Phosphatase 62 U/L (40-130) 04/23/23 03:26 Troponin T Baseline 36 ng/L (0-15) H 04/23/23 03:26 Troponin T 120 Minute 36.18 ng/L (0-15) H 04/23/23 06:02 Delta Troponin T 0.18 ABS# (0-10) 04/23/23 06:02 C-Reactive Protein 3.0 mg/L (0.0-4.9) 04/23/23 03:26 NT-Pro-B Natriuret Pep 1110 pg/mL (0-125) H 04/23/23 03:26 Total Protein 6.3 g/dL (6.6-8.7) L 04/23/23 03:26 Albumin 4.4 g/dL (3.5-5.2) 04/23/23 03:26 Globulin 1.9 g/dL (1.3-4.6) 04/23/23 03:26 Urine Color Red (Yellow) A 04/23/23 04:31 Urine Appearance Cloudy (CLEAR) A 04/23/23 04:31 Urine pH 6.5 (5-7) 04/23/23 04:31 Ur Specific [place] 1.015 (1.005-1.030) 04/23/23 04:31 Urine Protein 3+ (Negative) H 04/23/23 04:31 Urine Glucose (UA) Norm (Normal) 04/23/23 04:31 Urine Ketones 1+ (Negative) H 04/23/23 04:31 Urine Blood 3+ (Negative) H 04/23/23 04:31 Urine Nitrate Negative (Negative) 04/23/23 04:31 Urine Bilirubin Neg (Negative) 04/23/23 04:31 Urine Urobilinogen Neg mg/dL (Negative) 04/23/23 04:31 Ur Leukocyte Esterase Trace (Negative) H 04/23/23 04:31 Urine RBC Too numerous to cnt /hpf (0-2) H 04/23/23 04:31 Urine WBC 25-40 /hpf (0-5) H 04/23/23 04:31 Ur Squamous Epith Cells 0-4 /hpf (0-5) H 04/23/23 04:31 Amorphous Sediment Not Reportable 04/23/23 04:31 Urine Bacteria None /hpf (NONE) 04/23/23 04:31 All radiology interpretation(s) finalized by discharge Discharge Plan Discharge Patient Disposition: Xfer Short-Term Hosp Clinical Impression: Autoimmune thrombocytopenia, Gross hematuria Condition: Fair Prescriptions: No Action magnesium oxide 250 mg magnesium tablet 250 mg PO DAILY de-ribose PO metoprolol tartrate 25 mg tablet 25 mg PO QID Qty: 120 6RF spironolactone 25 mg tablet See Rx Instructions .ROUTE .COMPLEX Qty: 90 3RF Dose Instruction: TAKE 1/2 TO 1 TABLET BY MOUTH DAILY NEEDED FOR FLUID RETENTION Rx Instructions: TAKE 1/2 TO 1 TABLET BY MOUTH DAILY NEEDED FOR FLUID RETENTION amiodarone 200 mg tablet 200 mg PO DAILY Qty: 90 3RF trazodone 100 mg tablet 100 mg PO BEDTIME Qty: 30 4RF Referrals: Edgar,PETER Butts [Primary Care Provider] - Coding Level of Care Code ED Engine Mechanic for Kelsey Menezes
--- NOTE | 2023-04-23 05:44 | PC.NURSE ---
Spoke with Dr Tam, notified to hold pain med and zofran as patient is in 0/10 pain and resting comfortably.
--- NOTE | 2023-04-23 05:46 | ECG_ITS ---
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 Measurements Intervals [place] Rate: 102 P: 0 MI: 0 QRS: 15 QRSD: 88 T: 34 QT: 338 QTc: 440 Interpretive Statements ATRIAL FIBRILLATION WITH RAPID VENTRICULAR RESPONSE ABNORMAL RHYTHM ECG Compared to ECG 04/23/2023 03:09:12 T-wave abnormality no longer present Electronically Signed On 04-23-2023 14:53:32 CONSTRUCTION ELECTRICIAN by Kandace Camara M.D. [id number]
[2023-04-23 06:31] LABS: Troponin 5 2HR 36.18 ng/L (0-15)
[2023-04-23 06:34] LABS: Troponin 5 2HR Delta 0.18 ABS# (0-10)
--- NOTE | 2023-04-23 07:15 | ECG_ITS ---
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 Measurements Intervals [place] Rate: 100 P: 0 UT: 0 QRS: 15 QRSD: 98 T: 36 QT: 330 QTc: 426 Interpretive Statements ATRIAL FIBRILLATION WITH RAPID VENTRICULAR RESPONSE NONSPECIFIC ST & T-WAVE ABNORMALITY ABNORMAL RHYTHM ECG Compared to ECG 04/23/2023 03:09:12 No significant changes Electronically Signed On 04-23-2023 14:53:23 CCTV TECHNICIAN by Kandace Camara M.D. [id number]
--- NOTE | 2023-04-23 07:39 | PC.PHAR ---
pt states his amiodarone 200mg daily was dced ext shows last filled 01/22/23 90d/s-pt states his dr decreased his entresto 24-26 to one half tab bid ext shows last filled 04/12/23 1 tab bid-notes are made in the pharmacy comments
[2023-04-23 10:03] LABS: Troponin 5 6HR 31.95 ng/L (0-15)
[2023-04-23 10:21] LABS: Troponin 5 6HR Delta -4.05 ng/L (0-12)
[2023-04-23] MEDS: sodium chloride 0.9% (100 ml) 100 ML IV ×2 (12:20→14:47)
--- NOTE | 2023-04-23 14:44 | ECG_ITS ---
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 Measurements Intervals [place] Rate: 128 P: 0 [place]: 0 QRS: 43 QRSD: 85 T: 4 QT: 274 QTc: 400 Interpretive Statements ATRIAL FIBRILLATION WITH RAPID VENTRICULAR RESPONSE POSSIBLE RIGHT VENTRICULAR CONDUCTION DELAY [RSR (QR) IN V1/V2] NONSPECIFIC ST & T-WAVE ABNORMALITY ABNORMAL RHYTHM ECG Compared to ECG 04/23/2023 07:15:40 No significant changes Electronically Signed On 04-23-2023 14:50:12 FACILITIES MAINTENANCE SUPERVISOR by Kandace Camara M.D. [id number]
[2023-04-23] MEDS: diphenhydrAMINE 50 mg/mL SDV 1mL IVP (15:18)
[2023-04-23] MEDS: dilTIAZem 5 mg/mL SDV 5 mL 20 MG IVP (15:22)
[2023-04-23] MEDS: dilTIAZem 100 MG in sodium chloride 0.9% (add-van) 100 ML IV (15:22)
--- NOTE | 2023-04-23 15:30 | PC.NURSE ---
WALKED INTO PT ROOM TO CHECK ON PT AND DISCONTINUE PLATELET INFUSION. PT APPEARED TO BE RESTLESS AND SHAKING AND STATED THAT HE FELT ITCHY ALL OVER HIS BODY. PT APPEARS SLIGHTLY FLUSHED BUT OTHERWISE A&O WITH NO NOTICABLE RASH. DR MAZA NOTIFIED AND ORDERED 50MG IVP BENADRYL. PT VITALS STABLE THROUGHOUT EVENT. BENADRYL GIVEN. PT APPEARS TO BE RESTING COMFORTABLY AT THIS TIME WITH CARDIAC AND HEMODYNAMIC MONITORING.
[2023-04-23 15:43] LABS: Basophils % 0.2 %; Eosinophils # 0.1 10^3/uL (0.0-0.8); Eosinophils % 0.6 %; Hematocrit 33.7 % (37-53); Lymphocytes # 3.4 10^3/uL (0.8-4.8); Lymphocytes % 32.2 %; Mean Corpuscular HGB Conc 27.9 g/dL (30-55); Mean Corpuscular Hemoglobin 22.7 pg (27-33); Mean Corpuscular Volume 81.4 fl (82-101); Monocytes # 0.1 10^3/uL (0.2-0.9); Monocytes % 1.1 %; Neutrophils % 65.1 %; Nucleated Red Blood Cells % 0.2 %; Red Blood Count 4.14 10^6/uL (3.85-5.65); Red Cell Distribution Width 19.7 % (12.1-15.1); White Blood Count 10.45 10^3/uL (3.29-11.43)
[2023-04-23 16:15] LABS: NT Pro B Type Natriuretic Pept 1166 pg/mL (0-125)
[2023-04-23 16:41] LABS: Platelet Count 10 10^3/cmm (157-399)
[2023-04-23 16:47] LABS: Slide Review Slide Review Perform
--- NOTE | 2023-04-23 17:27 | PC.NURSE ---
PT BELONGINGS LIST SCANNED INTO CHART.
[2023-04-23] MEDS: piperacillin-tazobactam 3.375 GM in sodium chloride 0.9% (plus) 50 ML IV (19:34)
--- NOTE | 2023-04-23 20:07 | PC.NURSE ---
NURSE ASSUMED CARE AT 1930
--- NOTE | 2023-04-23 20:29 | PC.NURSE ---
Report called to Ramirez Uriarte RN after several attempts for patient transfer to [facility] in [facility].
--- NOTE | 2023-04-23 21:03 | PC.NURSE ---
REport to [facility] with [facility]. Pt will not have enough Cardizem for transfer. Pulled and sent with.
== END 2023-04-23 21:08 | disposition short-term general hospital (02) ==
PROVIDERS: Family Medicine; Emergency Provider Emergency Medicine; PCP Nurse Practitioner Family
DX: R31.0 Gross hematuria (principal); D69.6 Thrombocytopenia, unspecified; M35.9 Systemic involvement of connective tissue, unspecified; I51.7 Cardiomegaly; Z85.72 Personal history of non-Hodgkin lymphomas; I42.9 Cardiomyopathy, unspecified; I50.9 Heart failure, unspecified; Z87.891 Personal history of nicotine dependence
CPT/HCPCS: 36415; 36430; 51702; 71045; 74176; 80053; 81001; 83605; 83880; 84484; 85025; 85610; 85730; 86140; 86900; 87086; 93005; 93010; 96365; 96366; 96367; 96375; 99291; 99292; J1200; J2543; J3490; P9035